=== PATIENT | female | born 1955 | race American Indian/Alaskan Native ===

== ENCOUNTER 2016-03-21 14:46 | Emergency (ER) | payer OTHER ==
[~2016-03-21] VITALS: Ht 160 cm; Wt 81.6 kg
[~2016-03-21 14:46] MED LIST: AGM875T PO; ASP81TEC PO; CALC-656 PO; CALCIUM 500+VI1 EACH PO; CEPH500C PO; CITA10TA12 PO; CLOP75TA PO; HYDR50CA PO; IRB150T PO; LOSA50TA6 PO; METF-380 PO; ONDA-42 PO; OXYC-12 PO; SIMV80TA3 PO
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
--- NOTE | 2016-03-21 15:49 | Diagnostic Imaging Report ---
CLINICAL INDICATION: Patient with facial and left arm numbness. EXAM: Head CT without IV contrast. Axial CT scan of the cervical spine with sagittal and coronal reformations. COMPARISON: Head CT without IV contrast dated 10/10/2014. FINDINGS: Head CT: There is no evidence of acute cerebral infarct, intracranial hemorrhage, or gross mass effect. There is normal perez-white matter distinction. The brain parenchymal volume appears appropriate for patient's age. There is no significant midline shift or herniation. There is no evidence of hydrocephalus. The basal cisterns are unremarkable. The skull, extracranial soft tissue, and orbits are unremarkable. The paranasal sinuses are unremarkable. Cervical spine: There is no evidence of acute cervical spine fracture or dislocation. There is no prevertebral soft tissue swelling. There is no significant central spinal canal or neuroforaminal narrowing. There is mild bilateral facet arthropathy. Visualized lung apices are clear. Neck soft tissue structures show no significant abnormality. IMPRESSION: 1: There is no evidence of acute intracranial process. 2: There is no acute cervical spine fracture or dislocation. Dictated by: Dictated on workstation # [id number]
[2016-03-21 16:54] LABS: BILIRUBIN,URINE NEGATIVE (NEGATIVE); KETONES,URINE NEGATIVE (NEGATIVE); LEUKOCYTE ESTERASE ,URINE 2+ (NEGATIVE); NITRITE,URINE NEGATIVE (NEGATIVE); PH,URINE 6.5 (5-9); PROTEIN,URINE NEGATIVE (NEGATIVE); UROBILINOGEN,URINE NORMAL (NORMAL)
[2016-03-21 17:04] LABS: SQUAMOUS EPITHELIAL CELL,UR 0-2 /HPF
[2016-03-21 17:18] LABS: BASOPHILS # (AUTO) 0.1 10^3/uL (0.0-0.1); BASOPHILS % (AUTO) 1 % (0-10); EOSINOPHILS # (AUTO) 0.2 10^3/uL (0.0-0.3); EOSINOPHILS % (AUTO) 2 % (0-10); LYMPHOCYTES # (AUTO) 2.3 X 10^3 (1.0-4.0); LYMPHOCYTES % (AUTO) 24 % (12-44); MEAN CORPUSCULAR HEMOGLOBIN 29 PG (25-34); MEAN CORPUSCULAR HGB CONC 33 G/DL (32-36); MEAN CORPUSCULAR VOLUME 86 FL (80-99); MEAN PLATELET VOLUME 10.6 FL (7.4-10.4); MONOCYTES # (AUTO) 0.8 X 10^3 (0.0-1.0); MONOCYTES % (AUTO) 8 % (0-12); NEUTROPHILS # (AUTO) 6.1 X 10^3 (1.8-7.8); NEUTROPHILS % (AUTO) 65 % (42-75); PLATELET COUNT 258 10^3/uL (130-400); RED BLOOD COUNT 4.71 10^6/uL (4.35-5.85); RED CELL DISTRIBUTION WIDTH 13.3 % (10.0-14.5); WHITE BLOOD COUNT 9.5 10^3/uL (4.3-11.0)
[2016-03-21 17:28] LABS: PROTHROMBIN TIME PATIENT 12.4 SEC (12.2-14.7)
[2016-03-21 17:34] LABS: ALANINE AMINOTRANSFERASE 26 U/L (0-55); ANION GAP 11 MMOL/L (5-14); ASPARTATE AMINO TRANSFERASE 24 U/L (5-34); BILIRUBIN,TOTAL 0.2 MG/DL (0.1-1.0); BLOOD UREA NITROGEN 10 MG/DL (7-18); BUN/CREATININE RATIO 13; CARBON DIOXIDE 19 MMOL/L (21-32); CHLORIDE 106 MMOL/L (98-107); CREATININE SERUM 0.78 MG/DL (0.60-1.30); GFR ESTIMATED > 60; GLUCOSE 113 MG/DL (70-105); MAGNESIUM 1.9 MG/DL (1.8-2.4); POTASSIUM 4.4 MMOL/L (3.6-5.0); SODIUM 136 MMOL/L (135-145); TOTAL PROTEIN 6.5 G/DL (6.4-8.2)
[2016-03-21 17:56] LABS: THYROID STIMULATING HORMONE 1.58 UIU/ML (0.35-4.94); TROPONIN I < 0.30 NG/ML (<0.30)
[2016-03-21] MEDS ORDERED: CEFD300C3 PO (18:13)
[2016-03-21 18:15] VITALS: BP 158/72
[2016-03-21] MEDS ORDERED: CEPHALEXIN 250 MG (KEFLEX) CAP PO ONE (18:15)
== END 2016-03-21 18:15 | disposition home or self-care (01) ==
LOC: EDUNIT# 14:46 → ER 14:48
DX: R20.0 Anesthesia of skin (principal); R20.2 Paresthesia of skin; N39.0 Urinary tract infection, site not specified; I10 Essential (primary) hypertension; E11.9 Type 2 diabetes mellitus without complications; F17.210 Nicotine dependence, cigarettes, uncomplicated; Z79.84 Long term (current) use of oral hypoglycemic drugs; Z79.899 Other long term (current) drug therapy
CPT/HCPCS: 36415; 70450; 72125; 80053; 81000; 83735; 84443; 84484; 85025; 85610; 85730; 87088; 99284

== ENCOUNTER → 2016-03-24 | Outpatient (CLI) | payer OTHER ==
[~2016-03-24] MED LIST changes: +CEFD300C3 PO
--- OUTSIDE RECORDS SUMMARY | 2016-03-24 07:54 | XMS REPORT | Continuity of Care Document ---
Author Author [facility] Organization [facility] Address Unknown Phone Unavailable Care Team Providers Care Screen Machine Operator Name Role Phone [facility] PCP Insurance Providers Payer Name Policy Number Subscriber Name Relationship [employer] [id number] Janna Chao 18 Self / Same As Patient Advance Directives Directive Response Recorded Date/Time Advance Directives No 03/21/16 2:49pm Health Care Power of Lobby Concierge No 03/21/16 2:49pm Organ Donor No 03/21/16 2:49pm Resuscitation Status Full Code 03/21/16 2:49pm Chief Complaint and Reason for Visit Chief Complaint Neurological Problems Reason for Visit Facial and BUE paraesthesias of UDE [id number] Problems Active Problems Medical Problem Onset Date Status Anxiety Unknown Acute Anxiety hyperventilation Unknown Acute UTI (urinary tract infection) Unknown Acute Medications Current Home Medications Medication Dose Units Route Directions Days/Qty Instructions Start Date Aspirin 81 Mg 81 Mg Oral Daily 03/27/11 Clopidogrel Bisulfate 75 Mg 75 Mg Oral Daily 06/09/12 Metformin Hcl (Glucophage) 1,000 Mg 1,000 Mg Oral Twice A Day Simvastatin 80 Mg 40 Mg Oral Daily 03/27/11 Losartan Potassium 50 Mg 100 Mg Oral Daily 06/09/12 Calcium Carbonate/Vitamin D3 1 Each 1 Tab Oral Twice A Day 06/10/12 Cefdinir (Omnicef) 300 Mg 300 Mg Oral Twice A Day 14 03/21/16 Past Home Medications Medication Directions Ordered Status Calcium Carbonate/Vitamin D3 1 Each Tablet, 1 Tab Oral Daily 03/27/11 Discontinued Irbesartan 150 Mg Tab, 150 Mg Oral Daily 03/27/11 Discontinued Cephalexin Monohydrate (Keflex) 500 Mg Capsule, 1 Each Oral Three Times A Day 03/27/11 Discontinued Amoxicillin/Clavulanate Potassium 1 Tab Tablet, 1 Tab Oral Twice A Day Discontinued Oxycodone Hcl/Acetaminophen 1 Each Tablet, 1 - 2 Each Oral Q4-6H Prn Discontinued Ondansetron Hcl 4 Mg Tab, 4 Mg Oral Every 4HRS as needed 06/12/12 Discontinued Citalopram Hydrobromide 10 Mg Tablet, 10 Mg Oral Daily 10/10/14 Discontinued Hydroxyzine Pamoate 50 Mg Capsule, 50 Mg Oral Every 6 Hours for Anxiety 10/10 Discontinued Social History Social History Problem Response Recorded Date/Time Alcohol Use Denies Use 10/10/2014 6:20pm Recreational Drug Use No 10/10/2014 6:20pm Recent Foreign Travel No 06/09/2012 10:10pm Recent Infectious Disease Exposure No 06/09/2012 10:10pm Hospitalization with Isolation Denies 03/21/2016 2:49pm Sexually Transmitted Disease No 03/21/2016 2:49pm HIV/AIDS No 03/21/2016 2:49pm Smoking Status Current Everyday Smoker 03/21/2016 2:49pm Do you dip or chew tobacco? No 10/10/2014 6:20pm Recent Hopitalizations No 03/21/2016 2:49pm Sexually Transmitted Disease No 03/21/2016 2:49pm Hospitalization with Isolation Denies 03/21/2016 2:49pm Query Response Start Date Stop Date Smoking Status Current Everyday Smoker Hospital Discharge Instructions No hospital discharge instructions. Plan of Care Discharge Date 03/21/16 6:15pm Disposition 01 HOME, SELF-CARE Condition at Discharge Stable Instructions/Education Provided Urinary Tract Infections in Adults Paresthesias (DC) Prescriptions See Medication Section Referrals [facility] - Primary Care Physician Additional Instructions/Education All discharge instructions reviewed with patient and/or family. Voiced understanding. IF SYMPTOMS PERSIST, RECOMMEND FOLLOWING UP @ YOUR PCP's OFFICE TO GET SCHEDULED FOR A MRI OF YOUR BRAIN. Functional Status Query Response Date Recorded Patient Orientation Person Place Time Situation March 21, 2016 2:49pm Comprehension Ability Understands Concepts March 21, 2016 2:49pm Allergies, Adverse Reactions, Alerts No known allergies. Immunizations No immunization records. Vital Signs Acute Vital Signs Vital Response Date/Time Temperature (Fahrenheit) 97.2 degrees F (97.6 - 99.5) 03/21/2016 2:49pm Temperature (Calculated Celsius) 36.85468 degrees C (36.4 - 37.5) 03/21/2016 2:49pm Temperature Source Temporal 03/21/2016 2:49pm Pulse Rate (adult) 80 bpm (60 - 90) 03/21/2016 2:49pm Respiratory Rate 20 bpm (12 - 24) 03/21/2016 2:49pm O2 Sat by Pulse Oximetry 97 % (88 - 100) 03/21/2016 2:49pm Blood Pressure 162/76 mm Hg 03/21/2016 2:49pm Blood Pressure Mean 104 mm Hg 03/21/2016 2:49pm Pain Numeric Pain Scale 0-No Pain 03/21/2016 2:49pm Height (Feet) 5 feet 03/21/2016 2:49pm Height (Inches) 3 inches 03/21/2016 2:49pm Height (Calculated Centimeters) 160.826061 cm 03/21/2016 2:49pm Weight (Pounds) 180 pounds 03/21/2016 2:49pm Weight (Calculated Kilograms) 81.472725 kilograms 03/21/2016 2:49pm Capillary Refill Capillary Refill Less Than 3 Seconds 03/21/2016 2:49pm Height 5 ft 3 in Weight 180 lb Body Mass Index 31.9 kg/m^2 Results Laboratory Results Test Name Result Units Flags Reference Collection Date/Time Result Date/ Time Comments White Blood Count 9.5 10^3/uL 4.3-11.0 03/21/2016 5:04pm 03/21/2016 5: 21pm Red Blood Count 4.71 10^6/uL 4.35-5.85 03/21/2016 5:04pm 03/21/2016 5: 21pm Hemoglobin 13.5 G/DL 11.5-16.0 03/21/2016 5:04pm 03/21/2016 5:21pm Hematocrit 41 % 35-52 03/21/2016 5:04pm 03/21/2016 5:21pm Mean Corpuscular Volume 86 FL 80-99 03/21/2016 5:04pm 03/21/2016 5: 21pm Mean Corpuscular Hemoglobin 29 PG 25-34 03/21/2016 5:04pm 03/21/2016 5: 21pm Mean Corpuscular Hemoglobin Concent 33 G/DL 32-36 03/21/2016 5:04pm 5:21pm Red Cell Distribution Width 13.3 % 10.0-14.5 03/21/2016 5:04pm 2016 5:21pm Platelet Count 258 10^3/uL 130-400 03/21/2016 5:04pm 03/21/2016 5:21pm Mean Platelet Volume 10.6 FL H 7.4-10.4 03/21/2016 5:04pm 03/21/2016 5: 21pm Neutrophils (%) (Auto) 65 % 42-75 03/21/2016 5:04pm 03/21/2016 5:21pm Lymphocytes (%) (Auto) 24 % 12-44 03/21/2016 5:04pm 03/21/2016 5:21pm Monocytes (%) (Auto) 8 % 0-12 03/21/2016 5:04pm 03/21/2016 5:21pm Eosinophils (%) (Auto) 2 % 0-10 03/21/2016 5:04pm 03/21/2016 5:21pm Basophils (%) (Auto) 1 % 0-10 03/21/2016 5:04pm 03/21/2016 5:21pm Neutrophils # (Auto) 6.1 X 10^3 1.8-7.8 03/21/2016 5:04pm 03/21/2016 5: 21pm Lymphocytes # (Auto) 2.3 X 10^3 1.0-4.0 03/21/2016 5:04pm 03/21/2016 5: 21pm Monocytes # (Auto) 0.8 X 10^3 0.0-1.0 03/21/2016 5:04pm 03/21/2016 5: 21pm Eosinophils # (Auto) 0.2 10^3/uL 0.0-0.3 03/21/2016 5:04pm 03/21/2016 5 :21pm Basophils # (Auto) 0.1 10^3/uL 0.0-0.1 03/21/2016 5:04pm 03/21/2016 5: 21pm Prothrombin Time 12.4 SEC 12.2-14.7 03/21/2016 5:04pm 03/21/2016 5: 34pm INR Comment 1.0 0.8-1.4 03/21/2016 5:04pm 03/21/2016 5:34pm INTERPRETIVE DATA SUGGESTED THERAPEUTIC RANGE FOR INR'S: VENOUS THROMBOSIS, PULMONARY EMBOLISM, OR PREVENTION OF SYSTEMIC EMBOLISM (EG. IN ATRIAL FIBRILLATION): 2.0 - 3.0 MECHANICAL PROSTHETIC HEART VALVES: 2.5 - 3.5* *NOTE: INR'S UP TO 4.5 MAY BE NECESSARY IN SELECTED GROUPS OF HIGH RISK PATIENTS. [employer] CONSENSUS CONFERENCE ON ANTITHROMBOTIC THERAPY (2000). Activated Partial Thromboplast Time 27 SEC 24-35 03/21/2016 5:04pm 5:34pm Urine Color YELLOW 03/21/2016 4:05pm 03/21/2016 5:04pm Urine Clarity CLEAR 03/21/2016 4:05pm 03/21/2016 5:04pm Urine pH 6.5 5-9 03/21/2016 4:05pm 03/21/2016 5:04pm Urine Specific [place] 1.010 * 1.016-1.022 03/21/2016 4:05pm 2016 5:04pm Urine Protein NEGATIVE NEGATIVE 03/21/2016 4:05pm 03/21/2016 5:04pm Urine Glucose (UA) NEGATIVE NEGATIVE 03/21/2016 4:05pm 03/21/2016 5: 04pm Urine RBC (Auto) NEGATIVE NEGATIVE 03/21/2016 4:05pm 03/21/2016 5: 04pm Urine Ketones NEGATIVE NEGATIVE 03/21/2016 4:05pm 03/21/2016 5:04pm Urine Nitrite NEGATIVE NEGATIVE 03/21/2016 4:05pm 03/21/2016 5:04pm Urine Bilirubin NEGATIVE NEGATIVE 03/21/2016 4:05pm 03/21/2016 5: 04pm Urine Urobilinogen NORMAL MG/DL NORMAL 03/21/2016 4:05pm 03/21/2016 5: 04pm Urine Leukocyte Esterase 2+ * NEGATIVE 03/21/2016 4:05pm 03/21/2016 5: 04pm Urine RBC NONE /HPF 03/21/2016 4:05pm 03/21/2016 5:04pm Urine WBC 5-10 /HPF * 03/21/2016 4:05pm 03/21/2016 5:04pm Urine Bacteria FEW /HPF * 03/21/2016 4:05pm 03/21/2016 5:04pm Urine Squamous Epithelial Cells 0-2 /HPF 03/21/2016 4:05pm 2016 5:04pm Urine Crystals NONE /LPF 03/21/2016 4:05pm 03/21/2016 5:04pm Urine Casts NONE /LPF 03/21/2016 4:05pm 03/21/2016 5:04pm Urine Mucus NEGATIVE /LPF 03/21/2016 4:05pm 03/21/2016 5:04pm Urine Culture Indicated YES 03/21/2016 4:05pm 03/21/2016 5:04pm Sodium Level 136 MMOL/L 135-145 03/21/2016 5:04pm 03/21/2016 5:42pm Potassium Level 4.4 MMOL/L 3.6-5.0 03/21/2016 5:04pm 03/21/2016 5:42pm Chloride Level 106 MMOL/L 98-107 03/21/2016 5:04pm 03/21/2016 5:42pm Carbon Dioxide Level 19 MMOL/L L 21-32 03/21/2016 5:04pm 03/21/2016 5: 42pm Anion Gap 11 MMOL/L 5-14 03/21/2016 5:04pm 03/21/2016 5:42pm Blood Urea Nitrogen 10 MG/DL 7-18 03/21/2016 5:04pm 03/21/2016 5:42pm Creatinine 0.78 MG/DL 0.60-1.30 03/21/2016 5:04pm 03/21/2016 5:42pm BUN/Creatinine Ratio 13 03/21/2016 5:04pm 03/21/2016 5:42pm Estimat Glomerular Filtration Rate > 60 03/21/2016 5:04pm 2016 5:42pm GFR INTERPRETIVE DATA UNITS FOR ESTIMATED GFR (eGFR): mL/min/1.73 M2 REFERENCE RANGE FOR ESTIMATED GFR (eGFR) eGFR NORMAL eGFR >60 MODERATELY DECREASED eGFR 30-59 SEVERLY DECREASED eGFR 15-29 KIDNEY FAILURE <15 (OR DIALYSIS) Glucose Level 113 MG/DL H 70-105 03/21/2016 5:04pm 03/21/2016 5:42pm Calcium Level 9.0 MG/DL 8.5-10.1 03/21/2016 5:04pm 03/21/2016 5:42pm Magnesium Level 1.9 MG/DL 1.8-2.4 03/21/2016 5:04pm 03/21/2016 5:42pm Total Bilirubin 0.2 MG/DL 0.1-1.0 03/21/2016 5:04pm 03/21/2016 5:42pm Alkaline Phosphatase 118 U/L 40-136 03/21/2016 5:04pm 03/21/2016 5: 42pm Aspartate Amino Transf (AST/SGOT) 24 U/L 5-34 03/21/2016 5:04pm 2016 5:42pm Alanine Aminotransferase (ALT/SGPT) 26 U/L 0-55 03/21/2016 5:04pm 03/21 5:42pm Troponin I < 0.30 NG/ML <0.30 03/21/2016 5:04pm 03/21/2016 5:57pm Total Protein 6.5 G/DL 6.4-8.2 03/21/2016 5:04pm 03/21/2016 5:42pm Albumin 4.0 G/DL 3.2-4.5 03/21/2016 5:04pm 03/21/2016 5:42pm Thyroid Stimulating Hormone (TSH) 1.58 UIU/ML 0.35-4.94 03/21/2016 5: 04pm 03/21/2016 5:57pm Procedures Procedure Status Date Provider(s) Tracing only of electrocardiogram Active 03/21/16 AUSTIN LOUIS DO Encounters Encounter Location Arrival/Admit Date Discharge/Depart Date Attending Provider Departed Emergency Room [facility] 03/21/16 2:48pm 03/21 6:15pm AUSTIN LOUIS DO Recent Diagnosis
--- NOTE | 2016-03-24 08:58 | Diagnostic Imaging Report ---
CLINICAL INDICATION: Patient states she has had history of mini strokes in the past. Patient has been having tingling and numbness in her lips and chin area and both hands since [place]. No previous brain surgery. EXAM: MRI of the brain performed without IV contrast. Sequences include axial DWI, ADC map, axial T2, axial FLAIR, axial gradient echo, axial T1, axial, and sagittal T1. COMPARISON: Head CT without IV contrast dated 03/21/2016. FINDINGS: There is no evidence of acute cerebral infarct, intracranial hemorrhage, or gross mass effect. There are focal and patchy areas of high T2 signal white matter changes in both cerebral hemispheres. There is a small area of chronic cerebral infarct involving the posterior left frontal lobe/parietal lobe region with mild encephalomalacia. This is also seen on comparison head CT, but more conspicuous on this exam. Otherwise, there is normal perez-white matter distinction. The brain parenchymal volume appears appropriate for patient's age. There is no significant midline shift or herniation. The visualized [place] of [place] vascular structures have normal flow void appearance. There is no evidence of hydrocephalus. The basal cisterns are unremarkable. The skull, extracranial soft tissue, and orbits are unremarkable. There is minimal mucosal thickening involving both maxillary sinuses. IMPRESSION: 1: There is no evidence of acute cerebral infarction, intracranial hemorrhage, hydrocephalus, or brain herniation. 2: Small chronic cerebral infarct involving the posterior left cerebral hemisphere and mild chronic small vessel ischemic disease. 3: Mild paranasal sinus disease. Dictated by: Dictated on workstation # [id number]
== END ==
LOC: RAD 07:50
PROVIDERS: ATTEND Nurse Practitioner Family
DX: R20.2 Paresthesia of skin (principal); Z86.73 Personal history of transient ischemic attack (TIA), and cerebral infarction without residual deficits
CPT/HCPCS: 70551

== ENCOUNTER → 2016-04-07 | Outpatient (CLI) | payer OTHER ==
--- OUTSIDE RECORDS SUMMARY | 2016-04-07 16:33 | XMS REPORT | Continuity of Care Document ---
Author Author [facility] Organization [facility] Address Unknown Phone Unavailable Care Team Providers Care Fixed Capital Clerk Name Role Phone [facility] PCP Insurance Providers Payer Name Policy Number Subscriber Name Relationship [employer] [id number] Janna Chao 18 Self / Same As Patient Advance Directives Directive Response Recorded Date/Time Advance Directives No 03/21/16 2:49pm Health Care Power of Table And Desk Finisher No 03/21/16 2:49pm Organ Donor No 03/21/16 2:49pm Resuscitation Status Full Code 03/21/16 2:49pm Chief Complaint and Reason for Visit Chief Complaint Neurological Problems Reason for Visit Facial and BUE paraesthesias of UDE [id number] Problems Active Problems Medical Problem Onset Date [...] Paresthesias (DC) Prescriptions See Medication Section Referrals [facility] - Primary Care Physician Additional Instructions/Education All [...] - 99.5) 03/21/2016 2:49pm Temperature (Calculated Celsius) 36.36392 degrees C (36.4 - 37.5) 03/21/2016 2:49pm [...] 3 inches 03/21/2016 2:49pm Height (Calculated Centimeters) 160.071883 cm 03/21/2016 2:49pm Weight (Pounds) 180 pounds 03/21/2016 2:49pm Weight (Calculated Kilograms) 81.509016 kilograms 03/21/2016 2:49pm Capillary Refill Capillary Refill [...] SELECTED GROUPS OF HIGH RISK PATIENTS. [employer] [place] [employer] CONSENSUS CONFERENCE ON ANTITHROMBOTIC THERAPY (2000). Activated Partial Thromboplast Time 27 SEC 24-35 03/21/2016 5:04pm 5:34pm Urine Color YELLOW 03/21/2016 4:05pm 03/21/2016 5:04pm Urine Clarity CLEAR 03/21/2016 4:05pm 03/21/2016 5:04pm Urine pH 6.5 5-9 03/21/2016 4:05pm 03/21/2016 5:04pm Urine Specific [place] 1.010 * 1.016-1.022 03/21/2016 4:05pm 2016 5:04pm [...] Date Attending Provider Departed Emergency Room [facility] 03/21/16 2:48pm 03/21 6:15pm AUSTIN LOUIS DO Recent Diagnosis
--- NOTE | 2016-04-07 16:52 | Diagnostic Imaging Report ---
Three views of the right ribs. INDICATION: Fall. FINDINGS: There is no rib fracture. The right lung is clear. Surgical clips in the upper right abdomen seen. IMPRESSION: No right rib fracture seen. Dictated by: Dictated on workstation # [id number]
== END ==
LOC: RAD 16:29
PROVIDERS: ATTEND Nurse Practitioner Family
DX: S20.301A Unspecified superficial injuries of right front wall of thorax, initial encounter (principal); W19.XXXA Unspecified fall, initial encounter; Y92.69 Other specified industrial and construction area as the place of occurrence of the external cause; Y99.0 Civilian activity done for income or pay
CPT/HCPCS: 71100

== ENCOUNTER 2017-11-13 13:58 | Emergency (ER) | payer OTHER ==
[~2017-11-13] VITALS: Ht 157.5 cm; Wt 77.6 kg
[2017-11-13 14:00] VITALS: BP 149/96
[2017-11-13 14:31] LABS: BASOPHILS # (AUTO) 0.1 10^3/uL (0.0-0.1); BASOPHILS % (AUTO) 1 % (0-10); EOSINOPHILS # (AUTO) 0.4 10^3/uL (0.0-0.3); EOSINOPHILS % (AUTO) 4 % (0-10); HEMATOCRIT 39 % (35-52); HEMOGLOBIN 13.1 G/DL (11.5-16.0); LYMPHOCYTES # (AUTO) 3.9 X 10^3 (1.0-4.0); LYMPHOCYTES % (AUTO) 35 % (12-44); MEAN CORPUSCULAR HEMOGLOBIN 30 PG (25-34); MEAN CORPUSCULAR HGB CONC 34 G/DL (32-36); MEAN CORPUSCULAR VOLUME 88 FL (80-99); MEAN PLATELET VOLUME 9.9 FL (7.4-10.4); MONOCYTES # (AUTO) 0.7 X 10^3 (0.0-1.0); MONOCYTES % (AUTO) 6 % (0-12); NEUTROPHILS # (AUTO) 6.1 X 10^3 (1.8-7.8); NEUTROPHILS % (AUTO) 54 % (42-75); PLATELET COUNT 312 10^3/uL (130-400); RED BLOOD COUNT 4.43 10^6/uL (4.35-5.85); RED CELL DISTRIBUTION WIDTH 14.2 % (10.0-14.5); WHITE BLOOD COUNT 11.2 10^3/uL (4.3-11.0)
[2017-11-13 14:45] LABS: INR 0.9 (0.8-1.4); PROTHROMBIN TIME PATIENT 12.2 SEC (12.2-14.7)
[2017-11-13 14:46] LABS: FIBRIN DEGRADATION PRODUCTS 0.23 UG/ML (0.00-0.49)
[2017-11-13 14:48] LABS: ALANINE AMINOTRANSFERASE 36 U/L (0-55); ALBUMIN 4.1 GM/DL (3.2-4.5); ALKALINE PHOSPHATASE 126 U/L (40-136); BILIRUBIN,TOTAL 0.3 MG/DL (0.1-1.0); BUN/CREATININE RATIO 14; CALCIUM 9.4 MG/DL (8.5-10.1); CARBON DIOXIDE 22 MMOL/L (21-32); CHLORIDE 103 MMOL/L (98-107); CREATININE SERUM 0.77 MG/DL (0.60-1.30); GFR ESTIMATED > 60; GLUCOSE 112 MG/DL (70-105); POTASSIUM 4.1 MMOL/L (3.6-5.0); SODIUM 136 MMOL/L (135-145)
--- NOTE | 2017-11-13 14:50 | ED Neurological Problem ---
General Chief Complaint: Neurological Problems Nursing Triage Note: PT AMB [facility] W/O DIFFICU/LTY. CO WEAKNESS AND NUMBNESS/TINGLING TO RT UPPER EXTREMITIY AND TINGER TIPS SINCE 11/05/17. REPORTS WAS SEEN AT PCP 11/07/17 WHERE EKG, LABS, AND XRAY WERE TAKEN AND CLEARED. PT REPORTS HX OF TIA 15 YEARS AGO, AND "WAS WORRIED [SHE] IS HAVING ANOTHER ONE." UPON ARRIVAL TO ED NIH STROKE SCALE PREFORMED WITH SCORE OF 0. PT ALERT & ORIENTED TO PERSON, PLACE, TIME AND SITUATION. SPEECH CLEAR. DENIES PAIN. Nursing Sepsis Screen: No Definite Risk Source: patient Exam Limitations: no limitations History of Present Illness Date Seen by Provider: Nov 13, 2017 Time Seen by Provider: 14:09 Initial Comments Here with report of weakness and numbness to the right arm that has been intermittent for the last week. States noted with activity. She was seen at [facility] earlier this week and had labs and x-rays. She is not sure about those findings although has not been called for anything that was abnormal. States that she has had some increasing numbness today and that scared her, prompting her visit to the emergency department. Patient is walking without difficulty. Timing/Duration: 1 week, waxing and waning Associated Symptoms: No confusion, No fever/chills, No muscle spasms, No nausea /vomiting, No numbness in legs/feet; paresthesia (right hand and circumoral); No slurred speech, No tingling in legs/feet, No trouble walking, No vision changes; weakness Allergies and Home Medications Allergies Coded Allergies: No Known Drug Allergies (Unverified , 03/27/11) Home Medications Aspirin 81 Mg Tabec, 81 MG PO DAILY, (Reported) Calcium Carbonate/Vitamin D3 1 Each Tablet, 1 TAB PO BID, (Reported) Cefdinir 300 Mg Capsule, 300 MG PO BID Prescribed by: AUSTIN LOUIS on 03/21/161812 Clopidogrel Bisulfate 75 Mg Tablet, 75 MG PO DAILY, (Reported) Losartan Potassium 50 Mg Tablet, 100 MG PO DAILY, (Reported) Metformin Hcl 1,000 Mg Tablet, 1,000 MG PO BID, (Reported) Simvastatin 80 Mg Tablet, 40 MG PO DAILY, (Reported) Patient Home Medication List Home Medication List Reviewed: Yes Review of Systems Review of Systems Constitutional: see HPI; No chills, No fever Eyes: No Symptoms Reported Ears, Nose, Mouth, Throat: see HPI; denies mouth swelling, denies throat pain Respiratory: No cough, No short of breath Cardiovascular: No chest pain, No edema Gastrointestinal: No abdominal pain, No nausea, No vomiting Psychiatric/Neurological: See HPI; Denies Headache; Numbness, Weakness All Other Systems Reviewed Negative Unless Noted: Yes Past Jmletfh-Yuuqes-Ziqpti Hx Past Med/Social Hx: Reviewed Nursing Past Med/Soc Hx Patient Social History Alcohol Use: Denies Use Recreational Drug Use: No Smoking Status: Current Everyday Smoker Type Used: Cigarettes 2nd Hand Smoke Exposure: Yes Recent Foreign Travel: No Contact w/Someone Who Travel: No Recent Infectious Disease Expo: No Recent Hopitalizations: No Physical Abuse: No Sexual Abuse: No Mistreated: No Immunizations Up To Date Date of Pneumonia Vaccine: Mar 24, 2011 Date of Influenza Vaccine: Mar 24, 2011 Seasonal Allergies Seasonal Allergies: No Past Medical History Surgeries: Yes (LEFT KNEE SRTHROSCOPY) Adenoidectomy, Section, Gallbladder, Hysterectomy, Orthopedic, Tonsillectomy Respiratory: No Cardiac: Yes High Cholesterol, Hypertension Neurological: Yes TIA Reproductive Disorders: No 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 [employer] History: Menopausal Sexually Transmitted Disease: No HIV/AIDS: No Genitourinary: No Gastrointestinal: Yes (S/P LAP HAY) Gastroesophageal Reflux, Gall Bladder Disease Musculoskeletal: No Endocrine: Yes Diabetes, Non-Insulin dep HEENT: No Cancer: No Psychosocial: Yes Anxiety Integumentary: No Blood Disorders: No Adverse Reaction/Blood Tranf: No Family Medical History Reviewed Nursing Family Hx No Pertinent Family Hx Physical Exam Vital Signs Vital Signs - First Documented 11/13/17 14:00 Temp 98.9 Pulse 85 Resp 19 B/P (MAP) 149/96 Pulse Ox 99 O2 Delivery Room Air Capillary Refill : Less Than 3 Seconds Height, Weight, BMI Height: 5'2.00" Weight: 171lbs. 8.0oz. 77.258948lt; BMI Method:Stated General Appearance: WD/WN, no apparent distress HEENT: PERRL/EOMI, pharynx normal Neck: full range of motion, supple Respiratory: lungs clear, normal breath sounds Cardiovascular: regular rate, rhythm, no murmur Peripheral Pulses: 2+ Dorsalis Pedis (R), 2+ Left Dors-Pedis (L), 2+ Radial Pulses (R), 2+ Radial Pulses (L) Gastrointestinal: non tender, soft Back: normal inspection, no CVA tenderness, no vertebral tenderness Extremities: non-tender, normal inspection Neurologic/Psychiatric: alert, oriented x 3 Crainal Nerves: normal hearing, normal speech, PERRL Coordination/Gait: normal finger to nose, normal gait Motor/Sensory: no motor deficit, no sensory deficit, no pronator drift Skin: normal color, warm/dry Progress/Results/Core Measures Results/Orders Lab Results Laboratory Tests Test 11/13/17 14:05 11/13/17 14:11 11/13/17 14:50 Range/Units White Blood Count 11.2 H 4.3-11.0 10^3/uL Red Blood Count 4.43 4.35-5.85 10^6/uL Hemoglobin 13.1 11.5-16.0 G/DL Hematocrit 39 35-52 % Mean Corpuscular Volume 88 80-99 FL Mean Corpuscular Hemoglobin 30 25-34 PG Mean Corpuscular Hemoglobin Concent 34 32-36 G/DL Red Cell Distribution Width 14.2 10.0-14.5 % Platelet Count 312 130-400 10^3/uL Mean Platelet Volume 9.9 7.4-10.4 FL Neutrophils (%) (Auto) 54 42-75 % Lymphocytes (%) (Auto) 35 12-44 % Monocytes (%) (Auto) 6 0-12 % Eosinophils (%) (Auto) 4 0-10 % Basophils (%) (Auto) 1 0-10 % Neutrophils # (Auto) 6.1 1.8-7.8 X 10^3 Lymphocytes # (Auto) 3.9 1.0-4.0 X 10^3 Monocytes # (Auto) 0.7 0.0-1.0 X 10^3 Eosinophils # (Auto) 0.4 H 0.0-0.3 10^3/uL Basophils # (Auto) 0.1 0.0-0.1 10^3/uL Prothrombin Time 12.2 12.2-14.7 SEC INR Comment 0.9 0.8-1.4 Activated Partial Thromboplast Time 29 24-35 SEC D-Dimer 0.23 0.00-0.49 UG/ML Sodium Level 136 135-145 MMOL/L Potassium Level 4.1 3.6-5.0 MMOL/L Chloride Level 103 98-107 MMOL/L Carbon Dioxide Level 22 21-32 MMOL/L Anion Gap 11 5-14 MMOL/L Blood Urea Nitrogen 11 7-18 MG/DL Creatinine 0.77 0.60-1.30 MG/DL Estimat Glomerular Filtration Rate > 60 BUN/Creatinine Ratio 14 Glucose Level 112 H 70-105 MG/DL Calcium Level 9.4 8.5-10.1 MG/DL Corrected Calcium 9.3 8.5-10.1 MG/DL Total Bilirubin 0.3 0.1-1.0 MG/DL Aspartate Amino Transf (AST/SGOT) 29 5-34 U/L Alanine Aminotransferase (ALT/SGPT) 36 0-55 U/L Alkaline Phosphatase 126 40-136 U/L Troponin I < 0.30 <0.30 NG/ML Total Protein 7.0 6.4-8.2 GM/DL Albumin 4.1 3.2-4.5 GM/DL Glucometer 110 70-110 MG/DL Urine Color YELLOW Urine Clarity CLEAR Urine pH 7 5-9 Urine Specific Landenberg 1.005 L 1.016-1.022 Urine Protein NEGATIVE NEGATIVE Urine Glucose (UA) NEGATIVE NEGATIVE Urine Ketones NEGATIVE NEGATIVE Urine Nitrite NEGATIVE NEGATIVE Urine Bilirubin NEGATIVE NEGATIVE Urine Urobilinogen NORMAL NORMAL MG/DL Urine Leukocyte Esterase 2+ H NEGATIVE Urine RBC (Auto) NEGATIVE NEGATIVE Urine RBC RARE /HPF Urine WBC 5-10 H /HPF Urine Squamous Epithelial Cells 5-10 /HPF Urine Crystals NONE /LPF Urine Bacteria FEW H /HPF Urine Casts NONE /LPF Urine Mucus NEGATIVE /LPF Urine Culture Indicated YES My Orders Orders - YRN LANGLEY MD Cbc With Automated Diff (11/13/17 14:10) Protime With Inr (11/13/17 14:10) Partial Thromboplastin Time (11/13/17 14:10) Comprehensive Metabolic Panel (11/13/17 14:10) Fibrin Degradation Products (11/13/17 14:10) Troponin I (11/13/17 14:10) Ua Culture If Indicated (11/13/17 14:10) Chest 1 View, Ap/Pa Only (11/13/17 14:10) Ekg Tracing (11/13/17 14:10) Nothing By Mouth (11/13/17 Dinner) Accucheck Stat ONCE (11/13/17 14:10) Saline Lock/Iv-Start (11/13/17 14:10) Vital Signs Stroke Patient Q15M (11/13/17 14:10) O2 (11/13/17 14:10) Intake & Output 06,14,22 (11/13/17 14:10) Monitor-Rhythm Ecg Trace Only (11/13/17 14:10) Dysphagia Screening Tool (11/13/17 14:10) Lipid Panel (11/14/17 06:00) Ct Head/Cervical Spine Wo (11/13/17 14:10) Urine Culture (11/13/17 14:50) Vital Signs/I&O 11/13/17 11/13/17 14:00 14:00 Temp 98.9 Pulse 85 85 Resp 19 19 B/P (MAP) 149/96 149/96 (113) Pulse Ox 99 99 O2 Delivery Room Air Blood Pressure Mean: 113 FSBG Bedside Testing Finger Stick Blood Glucose: 111 Blood Glucose Action Taken: provider notified Progress Progress Note : Progress Note Seen and evaluated. IV, labs, EKG, chest x-ray, CT head ordered. We will add CT neck due to possible radiculopathy findings. Patient is 0 on stroke scale was done by me. Balance and gait are without disturbance. 1624: CT results noted. Lab and x-ray reviewed. I did discuss this with the patient. Overall she is feeling better and there are no acute findings. We will treat for probable urinary tract infection and patient admits that she's had some urinary tract symptoms over the last few weeks. She did get treatment with Bactrim for a few days and felt a little better. We will initiate treatment with outpatient cephalexin. Patient will follow-up with her DrGarima for further evaluation of her neck including MRI if indicated due to what appears to be radiculopathy findings in the right arm. Discharged home with return precautions. Patient verbalize understanding instructions and agreement with plan. Initial ECG Impression Date: Nov 13, 2017 Initial ECG Impression Time: 14:19 Initial ECG Rate: 76 Initial ECG Rhythm: Normal Sinus Initial ECG Intervals: Normal Initial ECG Impression: Normal Initial ECG Comparisson: Unchanged Comment Sinus rhythm with normal axis. No evidence of ST elevation SC. Similar to 10 October 2014. Interpreted by me. Diagnostic Imaging Diagonstic Imaging: Xray Plain Films/CT/US/NM/MRI: chest Comments VIA [facility] [place], [place] NAME: ALEX CHAO [facility] REC#: [id number] PT STATUS: REG ER : 1955 PHYSICIAN: YRN LANGLEY MD ADMIT DATE: 11/13/17/ER Draft Date of Exam:11/13/17 CHEST 1 VIEW, AP/PA ONLY Indication: Upper extremity paresthesia and facial numbness. Single AP view of the chest is obtained. Comparison is made to study of 10/10/2014. Overall heart size and pulmonary vascularity are within normal limits. There is mild linear atelectasis or scarring in the left base. No consolidation or pneumothorax identified. There is no evidence of significant pleural fluid. Impression: Left basilar atelectasis and/or scarring. Otherwise, no acute abnormality or adverse change is seen. Report faxed to [facility] in [place] at 4:10 p.m. 11/13/2017/yevgeniy Dictated on workstation # [id number] Dict: 11/13/17 1441 Trans: 11/13/17 [address] [id number] Interpreted by: KRISTAL SCOTT MD Electronically signed by: Diagonstic Imaging: CT Plain Films/CT/US/NM/MRI: c-spine, head Comments PT STATUS: REG ER : 1955 PHYSICIAN: YRN LANGLEY MD ADMIT DATE: 11/13/17/ER Draft Date of Exam:11/13/17 CT HEAD/CERVICAL SPINE WO PROCEDURE: CT head and CT cervical spine without contrast. TECHNIQUE: Multiple contiguous axial images were obtained through the brain and cervical spine without the use of intravenous contrast. Sagittal and coronal reformations through the cervical spine were then performed. INDICATION: Right facial and upper extremity paresthesia with neck pain. Comparison is made to study of 03/21/2016. Ventricles and sulci remain within normal limits. There is no evidence of hemorrhage. Low-density seen within the high left frontal and parietal white matter. This is not significantly changed compared to previous study. There is no evidence of acute infarct. Calvarium is intact and the visualized paranasal sinuses are clear. IMPRESSION: Low-density within the high left frontal and parietal white matter which may be related to scoliosis and possible old ischemic event. There is no CT evidence of acute intracranial abnormality. CT CERVICAL SPINE: Multiple contiguous axial CT images of the cervical spine were obtained with sagittal and coronal reformatted images produced. FINDINGS: There is loss of normal cervical lordosis. Vertebral body heights and disc spaces are maintained. Prevertebral soft tissues are unremarkable, and there is no evidence of paraspinous hematoma. There is diffuse degenerative facet arthropathy similar to the previous examination. IMPRESSION: Loss of normal cervical lordosis which may be due to positioning or muscle spasm. There is, otherwise, no CT evidence of acute cervical spinal abnormality. Report faxed to [facility] in [place] at 4:08 p.m. 11/13/2017/yevgeniy Dictated on workstation # [id number] Dict: 11/13/17 1442 Trans: 11/13/17 [address] [id number] Interpreted by: KRISTAL SCOTT MD Electronically signed by: Departure Impression Primary Impression: Cervical radiculopathy Additional Impressions: Urinary tract infection Qualified Codes: N30.00 - Acute cystitis without hematuria Paresthesia Disposition: HOME, SELF-CARE Condition: Improved Departure-Patient Inst. Decision time for Depature: 16:30 Referrals: BHASKAR LEWIS DO (PCP) Primary Care Physician JAMES CHANDLER APRN (Family) Primary Care Physician Patient Instructions: Paresthesias (DC), Radiculopathy (DC), Urinary Tract Infection, Adult (DC) Add. Discharge Instructions: All discharge instructions reviewed with patient and/or family. Voiced understanding. Continue home medications as previously prescribed. Take new medicines as prescribed. Follow-up with your doctor this week for recheck and further evaluation and to discuss evaluation for your neck including MRI if indicated. Return for worsening, fever, vomiting, weakness, breathing problems, vision or balance problems or other concerns as needed. Scripts Cephalexin (Cephalexin) 500 Mg Tablet 500 MG PO BID, #14 TAB 0 Refills Prov: YRN LANGLEY MD 11/13/17 Copy Copies To 1: BHASKAR LEWIS TIMOTHY D MD Nov 13, 2017 14:50
[2017-11-13 15:08] LABS: BILIRUBIN,URINE NEGATIVE (NEGATIVE); CLARITY,URINE CLEAR; COLOR,URINE YELLOW; GLUCOSE, URINE (UA) NEGATIVE (NEGATIVE); KETONES,URINE NEGATIVE (NEGATIVE); LEUKOCYTE ESTERASE ,URINE 2+ (NEGATIVE); NITRITE,URINE NEGATIVE (NEGATIVE); PH,URINE 7 (5-9); PROTEIN,URINE NEGATIVE (NEGATIVE); UROBILINOGEN,URINE NORMAL (NORMAL)
[2017-11-13 15:16] LABS: BACTERIA,URINE FEW /HPF; RBC,URINE RARE /HPF
--- NOTE | 2017-11-13 16:05 | Diagnostic Imaging Report ---
Indication: Upper extremity paresthesia and facial numbness. Single AP view of the chest is obtained. Comparison is made to study of 10/10/2014. Overall heart size and pulmonary vascularity are within normal limits. There is mild linear atelectasis or scarring in the left base. No consolidation or pneumothorax identified. There is no evidence of significant pleural fluid. Impression: Left basilar atelectasis and/or scarring. Otherwise, no acute abnormality or adverse change is seen. Report faxed to [facility] in [place] at 4:10 p.m. 11/13/2017/yevgeniy Dictated by: Dictated on workstation # [id number]
--- NOTE | 2017-11-13 16:05 | Diagnostic Imaging Report ---
PROCEDURE: CT head and CT cervical spine without contrast. TECHNIQUE: Multiple contiguous axial images were obtained through the brain and cervical spine without the use of intravenous contrast. Sagittal and coronal reformations through the cervical spine were then performed. INDICATION: Right facial and upper extremity paresthesia with neck pain. Comparison is made to study of 03/21/2016. Ventricles and sulci remain within normal limits. There is no evidence of hemorrhage. Low-density seen within the high left frontal and parietal white matter. This is not significantly changed compared to previous study. There is no evidence of acute infarct. Calvarium is intact and the visualized paranasal sinuses are clear. IMPRESSION: Low-density within the high left frontal and parietal white matter which may be related to scoliosis and possible old ischemic event. There is no CT evidence of acute intracranial abnormality. CT CERVICAL SPINE: Multiple contiguous axial CT images of the cervical spine were obtained with sagittal and coronal reformatted images produced. FINDINGS: There is loss of normal cervical lordosis. Vertebral body heights and disc spaces are maintained. Prevertebral soft tissues are unremarkable, and there is no evidence of paraspinous hematoma. There is diffuse degenerative facet arthropathy similar to the previous examination. IMPRESSION: Loss of normal cervical lordosis which may be due to positioning or muscle spasm. There is, otherwise, no CT evidence of acute cervical spinal abnormality. Report faxed to [facility] in [place] at 4:08 p.m. 11/13/2017/yevgeniy Dictated by: Dictated on workstation # [id number]
[2017-11-13] MEDS ORDERED: CEPH500T PO (16:32)
[2017-11-13 16:40] VITALS: BP 150/88
== END 2017-11-13 16:40 | disposition home or self-care (01) ==
LOC: EDUNIT# 13:58 → ER 13:59
DX: M54.12 Radiculopathy, cervical region (principal); N39.0 Urinary tract infection, site not specified; R20.2 Paresthesia of skin; E78.00 Pure hypercholesterolemia, unspecified; I10 Essential (primary) hypertension; E11.9 Type 2 diabetes mellitus without complications; F41.9 Anxiety disorder, unspecified; K21.9 Gastro-esophageal reflux disease without esophagitis; F17.210 Nicotine dependence, cigarettes, uncomplicated; Z90.49 Acquired absence of other specified parts of digestive tract; Z79.82 Long term (current) use of aspirin; Z79.02 Long term (current) use of antithrombotics/antiplatelets; Z87.448 Personal history of other diseases of urinary system; Z90.89 Acquired absence of other organs; Z79.84 Long term (current) use of oral hypoglycemic drugs; Z90.710 Acquired absence of both cervix and uterus; Z86.73 Personal history of transient ischemic attack (TIA), and cerebral infarction without residual deficits
CPT/HCPCS: 36415; 70450; 71045; 72125; 80053; 81000; 82962; 84484; 85025; 85379; 85610; 85730; 87088; 93005; 93041

== ENCOUNTER 2019-03-04 11:24 | Emergency (ER) | payer OTHER ==
[~2019-03-04] VITALS: Ht 157 cm; Wt 72.7 kg
[~2019-03-04 11:24] MED LIST changes: +CEPH500T PO
[2019-03-04 11:54] LABS: BASOPHILS # (AUTO) 0.1 10^3/uL (0.0-0.1); BASOPHILS % (AUTO) 1 % (0-10); EOSINOPHILS # (AUTO) 0.1 10^3/uL (0.0-0.3); EOSINOPHILS % (AUTO) 1 % (0-10); HEMATOCRIT 45 % (35-52); HEMOGLOBIN 14.5 G/DL (11.5-16.0); LYMPHOCYTES # (AUTO) 1.5 X 10^3 (1.0-4.0); LYMPHOCYTES % (AUTO) 23 % (12-44); MEAN CORPUSCULAR HEMOGLOBIN 28 PG (25-34); MEAN CORPUSCULAR HGB CONC 32 G/DL (32-36); MEAN CORPUSCULAR VOLUME 88 FL (80-99); MEAN PLATELET VOLUME 10.6 FL (7.4-10.4); MONOCYTES # (AUTO) 0.7 X 10^3 (0.0-1.0); MONOCYTES % (AUTO) 10 % (0-12); NEUTROPHILS # (AUTO) 4.1 X 10^3 (1.8-7.8); NEUTROPHILS % (AUTO) 64 % (42-75); PLATELET COUNT 206 10^3/uL (130-400); WHITE BLOOD COUNT 6.3 10^3/uL (4.3-11.0)
[2019-03-04 12:16] LABS: ALBUMIN 3.9 GM/DL (3.2-4.5); BILIRUBIN,TOTAL 0.2 MG/DL (0.1-1.0); CALCIUM 9.1 MG/DL (8.5-10.1); CREATININE SERUM 0.96 MG/DL (0.60-1.30); TOTAL PROTEIN 6.6 GM/DL (6.4-8.2)
--- NOTE | 2019-03-04 12:19 | Diagnostic Imaging Report ---
PROCEDURE: CT head and CT cervical spine without contrast. TECHNIQUE: Multiple contiguous axial images were obtained through the brain and cervical spine without the use of intravenous contrast. Sagittal and coronal reformations through the cervical spine were then performed. Auto Exposure Controls were utilized during the CT exam to meet ALARA standards for radiation dose reduction. INDICATION: Right arm numbness. Correlation is made with prior CT from 11/13/2017. CT HEAD: Areas of low density in the left frontal lobe are noted consistent with old infarcts. There is some sulcal prominence at this location as well consistent with mild volume loss. No sulcal effacement is seen. There is no midline shift. No acute intra-axial or extra-axial hemorrhage is detected. Cisterns are patent. Visualized paranasal sinuses are clear. IMPRESSION: Chronic changes. No acute intracranial process is detected. CT cervical spine: Alignment is normal. There is generalized cervical spondylosis with variable disc space narrowing and marginal spurring. There is multilevel facet arthropathy. No fractures are seen. Prevertebral tissues are within normal limits. The odontoid is intact. IMPRESSION: Cervical spondylosis. No acute abnormality is detected. Dictated by: Dictated on workstation # [id number]
--- NOTE | 2019-03-04 12:27 | ED Neurological Problem ---
General Chief Complaint: Neurological Problems Stated Complaint: R ARM NUMB;WEAKNESS Nursing Triage Note: PT PRESENTS TO ED WITH COMPLAINTS OF R ARM NUMBNESS AND WEAKNESS STARTING THIS AM BUT WORSE WHILE SHE WAS AT WORK TODAY. PT ALSO REPORTS SHE HAS BEEN NON COMPLIANT WITH HER MEDICATIONS FOR ABOUT 1 WEEK BUT DID TAKE THEM THIS AM. Nursing Sepsis Screen: No Definite Risk Source: patient Exam Limitations: no limitations History of Present Illness Date Seen by Provider: Mar 04, 2019 Time Seen by Provider: 11:45 Initial Comments To ER with tingling of the right arm from just above the elbow all the way down affecting all of the fingers. This was first noticed yesterday, more prominent upon awakening this morning. She was still able to type on the keyboard work however this morning. She is employed at [employer]. She states it just feels different. 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 Her symptoms recurred today which is worrisome to her. She was started on aspirin and Plavix 15-20 years ago. She is also a diabetic and misplaced her Plavix losartan and metformin after cleaning out her car 1 week ago, she was without these medications for one week and restarted them this morning when she found them. She also reports nasal congestion, loose stools. Timing/Duration: 24 hours Severity: moderate Associated Symptoms: No numbness in legs/feet; paresthesia; No slurred speech, No tingling in legs/feet, No trouble walking, No vision changes, No weakness Allergies and Home Medications Allergies Coded Allergies: No Known Drug Allergies (Unverified , 03/27/11) Home Medications Aspirin 81 Mg Tabec, 81 MG PO DAILY, (Reported) Calcium Carbonate/Vitamin D3 1 Each Tablet, 1 TAB PO BID, (Reported) Cefdinir 300 Mg Capsule, 300 MG PO BID Prescribed by: AUSTIN LOUIS on 03/21/161812 Cephalexin 500 Mg Tablet, 500 MG PO BID Prescribed by: YRN LANGLEY on 11/13/17 1632 Clopidogrel Bisulfate 75 Mg Tablet, 75 MG PO DAILY, (Reported) Losartan Potassium 50 Mg Tablet, 100 MG PO DAILY, (Reported) Metformin Hcl 1,000 Mg Tablet, 1,000 MG PO BID, (Reported) Simvastatin 80 Mg Tablet, 40 MG PO DAILY, (Reported) Patient Home Medication List Home Medication List Reviewed: Yes Review of Systems Review of Systems Constitutional: see HPI Eyes: No Symptoms Reported Ears, Nose, Mouth, Throat: no symptoms reported Respiratory: no symptoms reported Cardiovascular: no symptoms reported Genitourinary: no symptoms reported Musculoskeletal: no symptoms reported Skin: no symptoms reported Psychiatric/Neurological: See HPI Endocrine: No Symptoms Reported Past Nkzpbon-Zbifpv-Pupolw Hx Patient Social History Alcohol Use: Denies Use Recreational Drug Use: No Smoking Status: Current Everyday Smoker Type Used: Cigarettes 2nd Hand Smoke Exposure: Yes Recent Foreign Travel: No Contact w/Someone Who Travel: No Recent Infectious Disease Expo: No Recent Hopitalizations: No Physical Abuse: No Sexual Abuse: No Mistreated: No Fear: No Immunizations Up To Date Date of Pneumonia Vaccine: Mar 24, 2011 Date of Influenza Vaccine: Mar 24, 2011 Seasonal Allergies Seasonal Allergies: No Past Medical History Surgeries: Yes (LEFT KNEE SRTHROSCOPY) Adenoidectomy, Section, Gallbladder, Hysterectomy, Orthopedic, Tonsillectomy Respiratory: No Cardiac: Yes High Cholesterol, Hypertension Neurological: Yes TIA 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 8.0oz. 77.756796il; 29.00 BMI Method:Stated General Appearance: WD/WN, no apparent distress HEENT: PERRL/EOMI, normal ENT inspection, TMs normal Neck: non-tender, full range of motion Respiratory: no respiratory distress, no accessory muscle use Gastrointestinal: normal bowel sounds, soft Neurologic/Psychiatric: alert, normal mood/affect, oriented x 3 Crainal Nerves: normal hearing, normal speech, PERRL Skin: normal color, warm/dry She has no measurable deficit on NIH. She states her right arm feels different but when I touch both arms, she states that it feels the same on both sides. Display Manager are equal, elbow flexion and extension is equal strength 5 out of 5 bilateral. Stroke Onset of Symptoms Date of Onset of Symptoms: Mar 03, 2019 Time of Symptom Onset: 16:00 Onset of Symptoms: Yes NIH Stroke Scale Assessment Select: Initial Level of Consciousness: 0=Alert (0), Level of Consciousness- Questions: 0=Answers both month/age (0), LOC Commands: 0=Performs both tasks (0), Gaze: Normal (0), Visual Fuentes: 0=No visual loss (0), Facial Movement (Facial Paresis): 0=Normal symmetrical mnt (0), Motor Function-Arms Right: 0=No drift (0), Motor Function-Arms Left: 0=No drift (0), Motor Function-Legs Right: 0=No drift (0), Motor Function-Legs Left: 0=No drift (0), Limb Ataxia: 0=Absent (0), Sensory: 0=Normal:no loss (0), Best Language: 0=No aphasia (0), Dysarthria: 0=Normal (0), Extinction & Inattention: 0=No abnormality (0), Total: 0 Progress/Results/Core Measures Results/Orders Lab Results Laboratory Tests Test 03/04/19 11:35 03/04/19 11:46 Range/Units Glucometer 104 70-110 MG/DL White Blood Count 6.3 4.3-11.0 10^3/uL Red Blood Count 5.11 4.35-5.85 10^6/uL Hemoglobin 14.5 11.5-16.0 G/DL Hematocrit 45 35-52 % Mean Corpuscular Volume 88 80-99 FL Mean Corpuscular Hemoglobin 28 25-34 PG Mean Corpuscular Hemoglobin Concent 32 32-36 G/DL Red Cell Distribution Width 14.0 10.0-14.5 % Platelet Count 206 130-400 10^3/uL Mean Platelet Volume 10.6 H 7.4-10.4 FL Neutrophils (%) (Auto) 64 42-75 % Lymphocytes (%) (Auto) 23 12-44 % Monocytes (%) (Auto) 10 0-12 % Eosinophils (%) (Auto) 1 0-10 % Basophils (%) (Auto) 1 0-10 % Neutrophils # (Auto) 4.1 1.8-7.8 X 10^3 Lymphocytes # (Auto) 1.5 1.0-4.0 X 10^3 Monocytes # (Auto) 0.7 0.0-1.0 X 10^3 Eosinophils # (Auto) 0.1 0.0-0.3 10^3/uL Basophils # (Auto) 0.1 0.0-0.1 10^3/uL Sodium Level 140 135-145 MMOL/L Potassium Level 4.0 3.6-5.0 MMOL/L Chloride Level 110 H 98-107 MMOL/L Carbon Dioxide Level 19 L 21-32 MMOL/L Anion Gap 11 5-14 MMOL/L Blood Urea Nitrogen 15 7-18 MG/DL Creatinine 0.96 0.60-1.30 MG/DL Estimat Glomerular Filtration Rate 59 BUN/Creatinine Ratio 16 Glucose Level 114 H 70-105 MG/DL Calcium Level 9.1 8.5-10.1 MG/DL Corrected Calcium 9.2 8.5-10.1 MG/DL Total Bilirubin 0.2 0.1-1.0 MG/DL Aspartate Amino Transf (AST/SGOT) 28 5-34 U/L Alanine Aminotransferase (ALT/SGPT) 23 0-55 U/L Alkaline Phosphatase 117 40-136 U/L Total Protein 6.6 6.4-8.2 GM/DL Albumin 3.9 3.2-4.5 GM/DL My Orders Orders - ANASTASIYA ALFREDO ECONOMETRICIAN Cbc With Automated Diff (03/04/19 11:48) Comprehensive Metabolic Panel (03/04/19 11:48) Accucheck Stat ONCE (03/04/19 11:48) Ed Iv/Invasive Line Start (03/04/19 11:48) Ct Head/Cervical Spine Wo (03/04/19 11:48) Mri Brain W/O Contrast (03/04/19 12:53) Vital Signs/I&O 03/04/19 11:35 Temp 36.8 Pulse 83 Resp 20 B/P (MAP) 137/92 (107) Pulse Ox 98 Blood Pressure Mean: 107 FSBG Bedside Testing Finger Stick Blood Glucose: 104 Diagnostic Imaging Diagonstic Imaging: CT Comments NAME: ALEX CHAO [employer] REC#: [id number] PT STATUS: REG ER : 1955 PHYSICIAN: ANASTASIYA ALFREDO APRN ADMIT DATE: 03/04/19/ER Draft Date of Exam:03/04/19 CT HEAD/CERVICAL SPINE WO PROCEDURE: CT head and CT cervical spine without contrast. TECHNIQUE: Multiple contiguous axial images were obtained through the brain and cervical spine without the use of intravenous contrast. Sagittal and coronal reformations through the cervical spine were then performed. Auto Exposure Controls were utilized during the CT exam to meet ALARA standards for radiation dose reduction. INDICATION: Right arm numbness. Correlation is made with prior CT from 11/13/2017. CT HEAD: Areas of low density in the left frontal lobe are noted consistent with old infarcts. There is some sulcal prominence at this location as well consistent with mild volume loss. No sulcal effacement is seen. There is no midline shift. No acute intra-axial or extra-axial hemorrhage is detected. Cisterns are patent. Visualized paranasal sinuses are clear. IMPRESSION: Chronic changes. No acute intracranial process is detected. CT cervical spine: Alignment is normal. There is generalized cervical spondylosis with variable disc space narrowing and marginal spurring. There is multilevel facet arthropathy. No fractures are seen. Prevertebral tissues are within normal limits. The odontoid is intact. IMPRESSION: Cervical spondylosis. No acute abnormality is detected. Dictated on workstation # [id number] Dict: 03/04/19 1213 Trans: 03/04/19 1219 [facility] [id number] Interpreted by: JAREN DEVRIES MD Electronically signed by: Departure Communication (Admissions) [id number] discussed the case with Dr. Odell from stroke neurology at [facility]. Recommended no intervention at this time, she should hold her losartan, a bit of hypertension is good in this case, continue the Plavix, add atorvastatin 40 mg daily if she is not already on it. Impression Primary Impression: Chronc Left ICA occlusion Disposition: HOME, SELF-CARE Condition: Stable Departure-Patient Inst. Decision time for Depature: 14:07 Referrals: BHASKAR LEWIS DO (PCP) Primary Care Physician JAMES CHANDLER APRN (Family) Primary Care Physician Patient Instructions: Stroke (DC) Add. Discharge Instructions: 1. Hold your losartan, do not take it for the next week. If your blood pressure goes back up over 140 systolic then you can restart it after discussion with primary care. Continue the Plavix daily. Follow-up with [facility] this week. Return to ER for any concerns. All discharge instructions reviewed with patient and/or family. Voiced und erstanding. Copy Copies To 1: BHASKAR LEWIS PETER J APRN Mar 04, 2019 12:27
--- NOTE | 2019-03-04 13:36 | Diagnostic Imaging Report ---
PROCEDURE: MR imaging of the brain without contrast. TECHNIQUE: Multiplanar, multisequence MR imaging of the brain was performed without contrast. INDICATION: Right arm paresthesia. COMPARISON: Comparison is made to examination of 03/24/2016. FINDINGS: Ventricles and sulci are within normal limits for size. Areas of T2 prolongation are again seen throughout the subcortical white matter of the left hemisphere. This is located predominately within the distribution of left middle cerebral artery with an increase in T2 signal and developing restricted diffusion along the margins of the anterior and middle cerebral artery distribution on the left. There is evidence of signal loss in the high left parietal region which may be due to nonacute petechial hemorrhage. There is absence of flow within the left internal carotid artery at the skull base with apparent reduction in flow void of the left middle cerebral artery, proximally. IMPRESSION: Findings are compatible with high-grade stenosis or occlusion of left distal internal carotid artery. Clinical correlation would be of use. In addition, there is increasing watershed infarct in the left frontal region without mass effect or new hemorrhage. Dictated by: Dictated on workstation # [id number]
[2019-03-04 14:52] VITALS: BP 105/81
== END 2019-03-04 14:52 | disposition home or self-care (01) ==
LOC: EDUNIT# 11:24 → ER 11:26
DX: I65.22 Occlusion and stenosis of left carotid artery (principal); E11.9 Type 2 diabetes mellitus without complications; I10 Essential (primary) hypertension; E78.00 Pure hypercholesterolemia, unspecified; F41.9 Anxiety disorder, unspecified; K21.9 Gastro-esophageal reflux disease without esophagitis; F17.210 Nicotine dependence, cigarettes, uncomplicated; Z90.89 Acquired absence of other organs; Z90.710 Acquired absence of both cervix and uterus; Z86.73 Personal history of transient ischemic attack (TIA), and cerebral infarction without residual deficits; Z79.02 Long term (current) use of antithrombotics/antiplatelets; Z79.84 Long term (current) use of oral hypoglycemic drugs; Z79.82 Long term (current) use of aspirin; Z90.49 Acquired absence of other specified parts of digestive tract
CPT/HCPCS: 36415; 70450; 70551; 72125; 80053; 82962; 85025; 93005

== ENCOUNTER 2020-03-02 09:52 | Emergency (ER) | payer OTHER ==
[~2020-03-02] VITALS: Ht 157.4 cm; Wt 78.0 kg
--- NOTE | 2020-03-02 10:06 | ED Neurological Problem ---
General Chief Complaint: Neurological Problems Stated Complaint: LIPS,ARM NUMBNESS, RAPID HR Source: patient Exam Limitations: no limitations History of Present Illness Date Seen by Provider: Mar 02, 2020 Time Seen by Provider: 10:00 Initial Comments Ms. Fitzpatrick is a 64-year-old who presents to the emergency room today with a chief complaint of "feeling off". Patient states that she has had perioral numbness over the course of the last 3 or 4 days. She is also felt numbness and tingling in her bilateral hands and feet since Monday. Patient states that she has had similar symptoms in the past and she relates that to having vitamin B12 deficiency. Patient states that she had an injection of B12 on the . P atient states she is followed through the [facility] in [facility]. That too takes care of her medications. She missed her last appointment in January and is going to reschedule a follow-up. Patient states that she has had previous stroke/TIA which resulted in right arm flaccid paralysis. She is regained all of her strength and movement in that arm since that time. She states it has been at least 15 to 20 years ago since she had her stroke. Patient was also told that she had a carotid bruit or a murmur in the right side of her neck and was encouraged to follow-up regarding that. She has never followed up. She denies any recent illnesses such as fevers, chills, cough or URI symptoms. No Covid concerns. She denies diarrhea, dysuria urgency or frequency. She is unaware of what her hemoglobin A1c is. All other review of systems reviewed and negative except as stated above. Allergies and Home Medications Allergies Coded Allergies: No Known Drug Allergies (Unverified , 03/27/11) Home Medications Aspirin 81 Mg Tabec, 81 MG PO DAILY, (Reported) Calcium Carbonate/Vitamin D3 1 Each Tablet, 1 TAB PO BID, (Reported) Cefdinir 300 Mg Capsule, 300 MG PO BID Prescribed by: AUSTIN LOUIS on 03/21/161812 Cephalexin 500 Mg Tablet, 500 MG PO BID Prescribed by: YRN LANGLEY on 11/13/17 1632 Clopidogrel Bisulfate 75 Mg Tablet, 75 MG PO DAILY, (Reported) Losartan Potassium 50 Mg Tablet, 100 MG PO DAILY, (Reported) Metformin Hcl 1,000 Mg Tablet, 1,000 MG PO BID, (Reported) Simvastatin 80 Mg Tablet, 40 MG PO DAILY, (Reported) Review of Systems Review of Systems Constitutional: see HPI Eyes: No Symptoms Reported Ears, Nose, Mouth, Throat: mouth pain (Perioral numbness) Respiratory: no symptoms reported Cardiovascular: no symptoms reported Gastrointestinal: no symptoms reported Genitourinary: no symptoms reported Musculoskeletal: no symptoms reported Skin: no symptoms reported Psychiatric/Neurological: Other (Numbness and tingling to the bilateral hands and feet that she states is improved at this time but still "a little numb".) Endocrine: No Symptoms Reported All Other Systems Reviewed Negative Unless Noted: Yes Past Oggqtou-Sohedy-Uktryy Hx Patient Social History Alcohol Use: Denies Use Recreational Drug Use: No Smoking Status: Current Everyday Smoker Type Used: Cigarettes 2nd Hand Smoke Exposure: Yes Recent Foreign Travel: No Contact w/Someone Who Travel: No Recent Hopitalizations: No Immunizations Up To Date Date of Pneumonia Vaccine: Mar 24, 2011 Date of Influenza Vaccine: Mar 24, 2011 Seasonal Allergies Seasonal Allergies: No Past Medical History Surgeries: Yes (LEFT KNEE ARTHROSCOPY) Adenoidectomy, Section, Gallbladder, Hysterectomy, Orthopedic, Tonsillectomy Respiratory: No Cardiac: Yes High Cholesterol, Hypertension Neurological: Yes TIA 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 8.0oz. 77.643382jl; 29.00 BMI Method:Stated General Appearance: WD/WN, no apparent distress HEENT: PERRL/EOMI Neck: full range of motion Respiratory: lungs clear, normal breath sounds, no respiratory distress, no accessory muscle use Cardiovascular: regular rate, rhythm, other (3/6 systolic ejection murmur heard at the right upper sternal border, possible murmur noted in the right carotid) Peripheral Pulses: 2+ Radial Pulses (R), 2+ Radial Pulses (L) Gastrointestinal: non tender, soft Extremities: normal range of motion, non-tender, normal inspection, no pedal edema, no calf tenderness Neurologic/Psychiatric: eligibility consultant II-XII nml as tested, no motor/sensory deficits, alert, normal mood/affect, oriented x 3 Crainal Nerves: normal hearing, normal speech, PERRL Coordination/Gait: normal finger to nose Motor/Sensory: no motor deficit, no sensory deficit Skin: normal color, warm/dry Stroke NIH Stroke Scale Assessment Gaze: Normal (0), Total: 0 Progress/Results/Core Measures Results/Orders Lab Results Laboratory Tests Test 03/02/20 10:00 03/02/20 10:36 Range/Units White Blood Count 11.7 H 4.3-11.0 10^3/uL Red Blood Count 4.61 3.80-5.11 10^6/uL Hemoglobin 13.3 11.5-16.0 g/dL Hematocrit 42 35-52 % Mean Corpuscular Volume 91 80-99 fL Mean Corpuscular Hemoglobin 29 25-34 pg Mean Corpuscular Hemoglobin Concent 32 32-36 g/dL Red Cell Distribution Width 13.7 10.0-14.5 % Platelet Count 301 130-400 10^3/uL Mean Platelet Volume 10.3 9.0-12.2 fL Immature Granulocyte % (Auto) 1 % Neutrophils (%) (Auto) 62 42-75 % Lymphocytes (%) (Auto) 26 12-44 % Monocytes (%) (Auto) 7 0-12 % Eosinophils (%) (Auto) 3 0-10 % Basophils (%) (Auto) 1 0-10 % Neutrophils # (Auto) 7.3 1.8-7.8 10^3/uL Lymphocytes # (Auto) 3.1 1.0-4.0 10^3/uL Monocytes # (Auto) 0.8 0.0-1.0 10^3/uL Eosinophils # (Auto) 0.4 H 0.0-0.3 10^3/uL Basophils # (Auto) 0.1 0.0-0.1 10^3/uL Immature Granulocyte # (Auto) 0.1 0.0-0.1 10^3/uL Sodium Level 138 135-145 MMOL/L Potassium Level 4.0 3.6-5.0 MMOL/L Chloride Level 102 98-107 MMOL/L Carbon Dioxide Level 23 21-32 MMOL/L Anion Gap 13 5-14 MMOL/L Blood Urea Nitrogen 14 7-18 MG/DL Creatinine 0.98 0.60-1.30 MG/DL Estimat Glomerular Filtration Rate 57 BUN/Creatinine Ratio 14 Glucose Level 168 H 70-105 MG/DL Calcium Level 9.5 8.5-10.1 MG/DL Urine Color YELLOW Urine Clarity CLEAR Urine pH 6.0 5-9 Urine Specific [place] <=1.005 1.016-1.022 Urine Protein NEGATIVE NEGATIVE Urine Glucose (UA) NEGATIVE NEGATIVE Urine Ketones NEGATIVE NEGATIVE Urine Nitrite NEGATIVE NEGATIVE Urine Bilirubin NEGATIVE NEGATIVE Urine Urobilinogen 0.2 < = 1.0 MG/DL Urine Leukocyte Esterase TRACE H NEGATIVE Urine RBC (Auto) NEGATIVE NEGATIVE Urine RBC NONE /HPF Urine WBC 0-2 /HPF Urine Squamous Epithelial Cells 0-2 /HPF Urine Crystals NONE /LPF Urine Bacteria NEGATIVE /HPF Urine Casts NONE /LPF Urine Mucus NEGATIVE /LPF Urine Culture Indicated NO My Orders Orders - GIANNA JEFFERSON MD Cbc With Automated Diff (03/02/20 10:15) Basic Metabolic Panel (03/02/20 10:15) Ua Culture If Indicated (03/02/20 10:15) Vital Signs/I&O 03/02/20 09:53 Temp 35.8 Pulse 81 Resp 22 B/P (MAP) 196/89 (124) Pulse Ox 99 O2 Delivery Room Air Progress Progress Note : Time: 10:45 Progress Note 64-year-old female presents with a chief complaint of perioral numbness as well as bilateral numbness and tingling in her hands and feet. Evaluation today includes a physical exam with neurologic examination. Basic laboratory studies have been ordered. Urinalysis is included. Patient clinically has no evidence of CVA at this time. Her NIH is 0. Patient has longstanding diabetes hypertension. Previous stroke. Unlikely this is diabetic neuropathy as the patient has had similar complaints in the past. Patient is encouraged to follow-up with the [facility]. She verbalizes understanding. Disposition will be determined once her laboratory studies have been evaluated. 1110 Labs have been reviewed and are all within normal limits. Blood sugar is mildly elevated in the 160s. No evidence of urinary tract infection. Patient will be discharged home to follow-up with the [facility]. Diagnosis of paresthesias. She is given good return precautions to include if she has unilateral numbness or weakness to return to the emergency department. She verbalizes understanding. All questions are sought and answered and she is stable for disc harge. Departure Impression Primary Impression: Paresthesia Disposition: HOME, SELF-CARE Condition: Stable Departure-Patient Inst. Decision time for Depature: 11:12 Referrals: BHASKAR LEWIS DO (PCP) Primary Care Physician JAMES CHANDLER APRN (Family) Primary Care Physician Patient Instructions: Paresthesia (DC) Add. Discharge Instructions: Drink plenty of fluids to stay well-hydrated. Continue your daily medications as previously prescribed. Please call the [facility] today to reschedule your follow-up appointment. Come back to the emergency room if you have any one-sided weakness with numbness, speech difficulties, balance issues or any other emergent concerning symptoms. GIANNA JEFFERSON MD Mar 02, 2020 10:06
[2020-03-02 10:21] LABS: BASOPHILS # (AUTO) 0.1 10^3/uL (0.0-0.1); BASOPHILS % (AUTO) 1 % (0-10); EOSINOPHILS # (AUTO) 0.4 10^3/uL (0.0-0.3); EOSINOPHILS % (AUTO) 3 % (0-10); HEMATOCRIT 42 % (35-52); HEMOGLOBIN 13.3 g/dL (11.5-16.0); LYMPHOCYTES # (AUTO) 3.1 10^3/uL (1.0-4.0); LYMPHOCYTES % (AUTO) 26 % (12-44); MEAN CORPUSCULAR HEMOGLOBIN 29 pg (25-34); MEAN CORPUSCULAR HGB CONC 32 g/dL (32-36); MEAN CORPUSCULAR VOLUME 91 fL (80-99); MEAN PLATELET VOLUME 10.3 fL (9.0-12.2); MONOCYTES # (AUTO) 0.8 10^3/uL (0.0-1.0); MONOCYTES % (AUTO) 7 % (0-12); NEUTROPHILS # (AUTO) 7.3 10^3/uL (1.8-7.8); NEUTROPHILS % (AUTO) 62 % (42-75); PLATELET COUNT 301 10^3/uL (130-400); WHITE BLOOD COUNT 11.7 10^3/uL (4.3-11.0)
[2020-03-02 10:32] LABS: CALCIUM 9.5 MG/DL (8.5-10.1)
[2020-03-02 10:36] LABS: CREATININE SERUM 0.98 MG/DL (0.60-1.30)
[2020-03-02 10:41] LABS: BILIRUBIN,URINE NEGATIVE (NEGATIVE); CLARITY,URINE CLEAR; COLOR,URINE YELLOW; GLUCOSE, URINE (UA) NEGATIVE (NEGATIVE); KETONES,URINE NEGATIVE (NEGATIVE); LEUKOCYTE ESTERASE ,URINE TRACE (NEGATIVE); NITRITE,URINE NEGATIVE (NEGATIVE); PROTEIN,URINE NEGATIVE (NEGATIVE)
[2020-03-02 10:49] LABS: BACTERIA,URINE NEGATIVE /HPF; SQUAMOUS EPITHELIAL CELL,UR 0-2 /HPF; WBC,URINE 0-2 /HPF
[2020-03-02 11:20] VITALS: BP 142/63
== END 2020-03-02 11:22 | disposition home or self-care (01) ==
LOC: EDUNIT# 09:52 → ER 09:54
DX: R20.2 Paresthesia of skin (principal); I10 Essential (primary) hypertension; E11.9 Type 2 diabetes mellitus without complications; E78.00 Pure hypercholesterolemia, unspecified; F17.210 Nicotine dependence, cigarettes, uncomplicated; Z86.73 Personal history of transient ischemic attack (TIA), and cerebral infarction without residual deficits; Z79.82 Long term (current) use of aspirin
CPT/HCPCS: 36415; 80048; 81000; 85025

== ENCOUNTER 2022-07-09 15:55 | Emergency (ER) | payer OTHER ==
[~2022-07-09] VITALS: Ht 155 cm; Wt 68.0 kg
[2022-07-09 16:37] LABS: BASOPHILS # (AUTO) 0.1 10^3/uL (0.0-0.1); BASOPHILS % (AUTO) 1 % (0-10); EOSINOPHILS # (AUTO) 0.2 10^3/uL (0.0-0.3); EOSINOPHILS % (AUTO) 1 % (0-10); HEMATOCRIT 37 % (35-52); HEMOGLOBIN 12.1 g/dL (11.5-16.0); LYMPHOCYTES # (AUTO) 2.6 X 10^3 (1.0-4.0); LYMPHOCYTES % (AUTO) 19 % (12-44); MEAN CORPUSCULAR HEMOGLOBIN 29 pg (25-34); MEAN CORPUSCULAR HGB CONC 33 g/dL (32-36); MEAN CORPUSCULAR VOLUME 88 fL (80-99); MONOCYTES # (AUTO) 0.8 X 10^3 (0.0-1.0); MONOCYTES % (AUTO) 6 % (0-12); NEUTROPHILS # (AUTO) 10.1 X 10^3 (1.8-7.8); NEUTROPHILS % (AUTO) 74 % (42-75); PLATELET COUNT 356 10^3/uL (130-400); WHITE BLOOD COUNT 13.8 10^3/uL (4.3-11.0)
[2022-07-09 16:45] LABS: CHLORIDE 99 MMOL/L (98-107)
[2022-07-09 16:46] LABS: POTASSIUM 3.9 MMOL/L (3.6-5.0); SODIUM 134 MMOL/L (135-145)
[2022-07-09 16:47] LABS: CALCIUM 9.3 MG/DL (8.5-10.1); GLUCOSE 199 MG/DL (70-105)
[2022-07-09 16:49] LABS: CARBON DIOXIDE 21 MMOL/L (21-32)
[2022-07-09 16:51] LABS: GFR ESTIMATED 71
[2022-07-09 16:52] LABS: BUN/CREATININE RATIO 16
[2022-07-09 16:53] LABS: MAGNESIUM 1.5 MG/DL (1.6-2.4)
[2022-07-09] MEDS ORDERED: HOLD METFORMIN - RECEIVED CONTRAST 20 ML VIAL IV SCH (17:30)
[2022-07-09] MEDS ORDERED: NS 100 ML (IVPB) BAG IV ONE (17:30)
[2022-07-09] MEDS ORDERED: MAGNESIUM 1 GM/100 ML IVPB 100 ML IV ONE (17:30)
[2022-07-09] MEDS ORDERED: IOHEXOL 350 MG/ML 100 ML (OMNIPAQUE 350) VIAL IV ONE (17:30)
--- NOTE | 2022-07-09 18:36 | Diagnostic Imaging Report ---
PROCEDURE: CT angiography of the head and CT angiography of the neck with and without contrast. TECHNIQUE: Contiguous noncontrast images were obtained from the skull base through the vertex. After intravenous contrast administration, helical CT angiography of the neck was performed. Source data was reformatted into 3D MIP projections. Delayed post contrast acquisition was also obtained. Auto Exposure Controls were utilized during the CT exam to meet ALARA standards for radiation dose reduction. INDICATION: Syncope, vascular anomaly within the right neck. COMPARISON: 03/04/2019. FINDINGS: Calcifications within the left greater than right basal ganglia again identified. No intracranial hemorrhage. No intracranial mass, mass effect, midline shift, herniation, hydrocephalus or extra-axial fluid collection. Focal hypodensity within the high left frontal lobe is again identified and unchanged from the prior examination. This likely relates to remote infarction with associated encephalomalacia. Minimal background chronic small vessel white matter ischemic disease. No CT evidence of an acute ischemic infarction. No enhancing intracranial mass lesion. The orbits are unremarkable. The paranasal sinuses are clear. The calvarium and extracalvarial soft tissues are unremarkable. The parapharyngeal fat is symmetric and well-maintained. The muscles of mastication are unremarkable. The salivary glands are unremarkable. The thyroid gland is unremarkable. No pathologically enlarged lymph nodes within the chest. The airway is patent. No apical pneumothorax. A 2 vessel aortic arch is present. Minimal stenosis involving the origin of the left subclavian artery. Mild scattered vascular calcifications are present. Approximately 30% stenosis involving the right carotid bulb. Occlusion of essentially the entirety of the left internal carotid artery is noted. There is collateral flow superiorly via the [place] from the right side via the anterior communicating artery with vascular flow noted within the left middle cerebral artery. Moderate stenosis involving the origin of the right vertebral artery with additional mild to moderate stenosis within the proximal right vertebral artery. The right vertebral artery partially terminates in PICA with the intracranial portion appearing diminutive. The left vertebral artery is unremarkable. Scattered osseous degenerative changes without acute osseous abnormality. IMPRESSION: Occlusion of the left internal carotid artery with collateral flow to the left middle cerebral artery coming via the right side from the anterior communicating artery. Of note, prior imaging from February 2019 suggested that the left internal carotid artery was likely occluded at that time as well. Moderate stenosis involving the origin of the right vertebral artery with additional mild to moderate stenosis within the proximal right vertebral artery. No acute intracranial abnormality with minimal background chronic small vessel white matter ischemic disease. Additional findings as above. Should there remain clinical concern for recent infarction, then further evaluation with MRI of the brain would be recommended. Dictated by: Dictated on workstation # [id number]
--- NOTE | 2022-07-09 18:47 | ED General ---
General Chief Complaint: General Problems/Pain Stated Complaint: ABD PAIN WEAKNESS Nursing Triage Note: PT WITH SON AND DAUGHTER, STATES PT HAS BEEN WEAK, FELT LIKE SHE WAS GOING TO PASS OUT BUT DIDN'T. ONE WEEK AGO PT FELT THIS WAS AND WAS TAKEN TO A HOSP IN [place]. HX OF HYPERGLYCEMIA, HTN, TYPE II DIABETIC, TIA'S. HAD A STOMACH ACHE ABOUT 30 MIN PARAEDUCATOR BEFORE SHE ATE. FAMILY SAY PT IS BEING QUIET AND SHE NORMALLY TALKS A LOT Source of Information: Patient Exam Limitations: No Limitations History of Present Illness Date Seen by Provider: July 09, 2022 Allergies and Home Medications Allergies Coded Allergies: No Known Drug Allergies (Unverified , 03/27/11) Patient Home Medication List Aspirin (Aspirin Ec 81 Mg) 81 Mg Tabec, 81 MG PO DAILY, (Reported) Entered as Reported by: MELISSA BYRNE on 03/27/111928 Calcium Carbonate/Vitamin D3 (Calcium 500+Vit D 400 Tab) 1 Each Tablet, 1 TAB PO BID, (Reported) Entered as Reported by: DANIELLE OALKEY on 06/10/12 0109 Cefdinir (Cefdinir) 300 Mg Capsule, 300 MG PO BID Prescribed by: AUSTIN LOUIS on 03/21/16 1813 Cephalexin (Cephalexin) 500 Mg Tablet, 500 MG PO BID Prescribed by: YRN LANGLEY on 11/13/17 1632 Clopidogrel Bisulfate (Plavix 75 Mg) 75 Mg Tablet, 75 MG PO DAILY, (Reported) Entered as Reported by: MELISSA BYRNE on 03/27/111928 Losartan Potassium (Losartan Potassium) 50 Mg Tablet, 100 MG PO DAILY, (Reported) Entered as Reported by: FRED ANGELO on 06/09/12 1538 Metformin Hcl (Metformin 1000 Mg) 1,000 Mg Tablet, 1,000 MG PO BID, (Reported) Entered as Reported by: MELISSA BYRNE on 03/27/111928 Simvastatin (Simvastatin) 80 Mg Tablet, 40 MG PO DAILY, (Reported) Entered as Reported by: MELISSA BYRNE on 03/27/111928 Past Asdwkkr-Omlbde-Arullp Hx Patient Social History Tobacco Use?: Yes Tobacco type used: Cigarettes Smoking Status: Current Everyday Smoker Substance use?: No Alcohol Use?: No Seasonal Allergies Seasonal Allergies: No Past Medical History Surgery/Hospitalization HX: TYPE II DIABETIC, HTN, TIA'S, 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, 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 Surgeries: Yes (LEFT KNEE ARTHROSCOPY) Adenoidectomy, Section, Gallbladder, Hysterectomy, Orthopedic, Tonsillectomy Respiratory: No Cardiac: Yes High Cholesterol, Hypertension Neurological: Yes TIA Reproductive Disorders: No 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 Sexually Transmitted Disease: No HIV/AIDS: No Genitourinary: No Gastrointestinal: Yes (S/P LAP HAY) Gastroesophageal Reflux, Gall Bladder Disease Musculoskeletal: No Endocrine: Yes Diabetes, Non-Insulin dep HEENT: No Cancer: No Psychosocial: Yes Anxiety Integumentary: No Blood Disorders: No Adverse Reaction/Blood Tranf: No Family Medical History No Pertinent Family Hx Physical Exam Vital Signs Vital Signs - First Documented 07/09/22 16:10 Temp 37.0 Pulse 101 Resp 22 B/P (MAP) 184/81 (115) Pulse Ox 98 O2 Delivery Room Air Capillary Refill : Less Than 3 Seconds Height, Weight, BMI Height: 5'2.00" Weight: 171lbs. 8.0oz. [id number]; 28.00 BMI Method:Stated Progress/Results/Core Measures Suspected Sepsis SIRS Temperature: Pulse: 101 Respiratory Rate: 22 Laboratory Tests 07/09/22 16:30: White Blood Count 13.8H Blood Pressure 184 /81 Mean: 115 Laboratory Tests 07/09/22 16:30: Creatinine 0.90, Platelet Count 356 Results/Orders Lab Results Laboratory Tests Test 07/09/22 16:30 Range/Units White Blood Count 13.8 H 4.3-11.0 10^3/uL Red Blood Count 4.24 3.80-5.11 10^6/uL Hemoglobin 12.1 11.5-16.0 g/dL Hematocrit 37 35-52 % Mean Corpuscular Volume 88 80-99 fL Mean Corpuscular Hemoglobin 29 25-34 pg Mean Corpuscular Hemoglobin Concent 33 32-36 g/dL Red Cell Distribution Width 14.1 10.0-14.5 % Platelet Count 356 130-400 10^3/uL Mean Platelet Volume 9.0 9.0-12.2 fL Immature Granulocyte % (Auto) 0 % Neutrophils (%) (Auto) 74 42-75 % Lymphocytes (%) (Auto) 19 12-44 % Monocytes (%) (Auto) 6 0-12 % Eosinophils (%) (Auto) 1 0-10 % Basophils (%) (Auto) 1 0-10 % Neutrophils # (Auto) 10.1 H 1.8-7.8 X 10^3 Lymphocytes # (Auto) 2.6 1.0-4.0 X 10^3 Monocytes # (Auto) 0.8 0.0-1.0 X 10^3 Eosinophils # (Auto) 0.2 0.0-0.3 10^3/uL Basophils # (Auto) 0.1 0.0-0.1 10^3/uL Immature Granulocyte # (Auto) 0.1 0.0-0.1 10^3/uL Sodium Level 134 L 135-145 MMOL/L Potassium Level 3.9 3.6-5.0 MMOL/L Chloride Level 99 98-107 MMOL/L Carbon Dioxide Level 21 21-32 MMOL/L Anion Gap 14 5-14 MMOL/L Blood Urea Nitrogen 14 7-18 MG/DL Creatinine 0.90 0.60-1.30 MG/DL Estimat Glomerular Filtration Rate 71 BUN/Creatinine Ratio 16 Glucose Level 199 H 70-105 MG/DL Calcium Level 9.3 8.5-10.1 MG/DL Magnesium Level 1.5 L 1.6-2.4 MG/DL Troponin I < 0.028 <0.028 NG/ML My Orders Orders - GEO MARR MD Basic Metabolic Panel (07/09/22 16:26) Cbc With Automated Diff (07/09/22 16:26) Magnesium (07/09/22 16:26) Ed Iv/Invasive Line Start (07/09/22 16:26) Ekg Tracing (07/09/22 16:26) Monitor-Rhythm Ecg Trace Only (07/09/22 16:26) Troponin I Gabriel (07/09/22 16:26) Ct Angio Head/Neck (07/09/22 17:16) Magnesium 1 Gm/100 Ml Ivpb (Magnesium Fernandes (07/09/22 17:30) Iohexol Injection (Omnipaque 350 Mg/Ml 1 (07/09/22 17:30) Received Contrast (Hold Metformin- Contr (07/09/22 17:30) Ns (Ivpb) (Sodium Chloride 0.9% Ivpb Bag (07/09/22 17:30) Medications Given in ED Current Medications Medications Dose Ordered Sig/Alexandra Route Start Time Stop Time Status Last Admin Dose Admin Iohexol 100 ml ONCE ONCE IV 07/09/22 17:30 07/09/22 17:31 DC 07/09/22 17:57 75 ML Magnesium Sulfate/ Dextrose 100 ml @ 100 mls/hr ONCE ONCE IV 07/09/22 17:30 07/09/22 18:29 DC 07/09/22 18:09 100 MLS/HR Sodium Chloride 100 ml ONCE ONCE IV 07/09/22 17:30 07/09/22 17:31 DC 07/09/22 17:57 80 ML Vital Signs/I&O 07/09/22 16:10 Temp 37.0 Pulse 101 Resp 22 B/P (MAP) 184/81 (115) Pulse Ox 98 O2 Delivery Room Air Capillary Refill : Less Than 3 Seconds Blood Pressure Mean: 115 Departure Impression Primary Impression: Lightheadedness Additional Impressions: Abdominal discomfort Occlusion of left internal carotid artery Stenosis of right vertebral artery Disposition: HOME, SELF-CARE Condition: Improved Departure-Patient Inst. Decision time for Depature: 19:08 Referrals: BHASKAR LEWIS DO (PCP) Primary Care Physician JAMES CHANDLER APRN (Family) Primary Care Physician DEBORAH DORMAN MD Patient Instructions: Carotid artery disease, Syncope (fainting) Add. Discharge Instructions: Follow-up with your primary care provider and Dr. Dorman as soon as possible. Please call for an appointment on Monday. Dr. Dorman's number is below. Take aspirin 81 mg daily and your Plavix (clopidogrel) It is absolutely necessary that you quit smoking. Please seek help from your primary care provider if needed. Return to the emergency room if you have any worsening of symptoms including recurrent episodes of lightheadedness or syncope (passing out), chest pain, shortness of breath, etc. Seek immediate medical attention if you have any strokelike symptoms including weakness or persistent numbness on one side of the body, facial drooping, difficulty generating or understanding speech, sudden vision changes, loss of balance, confusion, etc. All discharge instructions reviewed with patient and/or family. Voiced understanding. GEO MARR MD July 09, 2022 18:47
[2022-07-09 19:33] VITALS: BP 164/74
== END 2022-07-09 19:38 | disposition home or self-care (01) ==
LOC: EDUNIT# 15:55 → ER 15:57
DX: I65.22 Occlusion and stenosis of left carotid artery (principal); I65.01 Occlusion and stenosis of right vertebral artery; R10.9 Unspecified abdominal pain; F17.210 Nicotine dependence, cigarettes, uncomplicated; Z90.49 Acquired absence of other specified parts of digestive tract
CPT/HCPCS: 36415; 70496; 70498; 80048; 83735; 84484; 85025; 93005

== ENCOUNTER 2022-08-06 08:16 | Observation (INO) | payer OTHER ==
[~2022-08-06] VITALS: Ht 157 cm; Wt 67.8 kg
[2022-08-06] MEDS ORDERED: LACTATED RINGERS 1,000 ML IV ONE (08:45)
[2022-08-06] MEDS ORDERED: fentaNYL INJ 100 MCG/2 ML AMP IVP ONE ×2 (08:45→12:15)
[2022-08-06 09:12] LABS: BASOPHILS # (AUTO) 0.1 10^3/uL (0.0-0.1); BASOPHILS % (AUTO) 1 % (0-10); EOSINOPHILS # (AUTO) 0.2 10^3/uL (0.0-0.3); EOSINOPHILS % (AUTO) 1 % (0-10); HEMATOCRIT 38 % (35-52); HEMOGLOBIN 12.3 g/dL (11.5-16.0); LYMPHOCYTES # (AUTO) 2.1 10^3/uL (1.0-4.0); LYMPHOCYTES % (AUTO) 14 % (12-44); MEAN CORPUSCULAR HEMOGLOBIN 28 pg (25-34); MEAN CORPUSCULAR HGB CONC 32 g/dL (32-36); MEAN CORPUSCULAR VOLUME 89 fL (80-99); MEAN PLATELET VOLUME 10.2 fL (9.0-12.2); MONOCYTES # (AUTO) 1.5 10^3/uL (0.0-1.0); MONOCYTES % (AUTO) 10 % (0-12); NEUTROPHILS # (AUTO) 10.8 10^3/uL (1.8-7.8); NEUTROPHILS % (AUTO) 74 % (42-75); PLATELET COUNT 348 10^3/uL (130-400); WHITE BLOOD COUNT 14.8 10^3/uL (4.3-11.0)
[2022-08-06 09:23] LABS: INR 0.9 (0.8-1.4); PROTHROMBIN TIME PATIENT 12.7 SEC (12.2-14.7)
[2022-08-06 09:25] LABS: POTASSIUM 3.6 MMOL/L (3.6-5.0)
[2022-08-06 09:26] LABS: CALCIUM 10.1 MG/DL (8.5-10.1)
[2022-08-06 09:27] LABS: TOTAL PROTEIN 7.6 GM/DL (6.4-8.2)
[2022-08-06 09:29] LABS: BILIRUBIN,TOTAL 0.4 MG/DL (0.1-1.0)
[2022-08-06 09:31] LABS: CREATININE SERUM 0.88 MG/DL (0.60-1.30)
--- NOTE | 2022-08-06 09:35 | ED General ---
General Chief Complaint: Oral/Throat Problems Stated Complaint: TONSILLAR ABSCESS Nursing Triage Note: pt presents to ED with c/o sore throat and patches on tonsils. pt diagnosed with strep throat 5 days and rx cephalexin but infection has gotten worse since. pt sent by [facility] for concerns for tonsillar abscess. Source of Information: Patient Exam Limitations: No Limitations History of Present Illness Date Seen by Provider: Aug 06, 2022 Time Seen by Provider: 08:30 Initial Comments This 66-year-old woman presents to the emergency room as directed by the [facility] walk-in clinic for concern about possible peritonsillar abscess. She was seen in the clinic on August 02 and had a positive rapid strep test. Since then she has been taking cephalexin 500 mg twice daily without improvement. Now she has swelling in the right throat, muffled voice, and more discomfort with swallowing. She is not having difficulty breathing. She has been afebrile but noted to be tachycardic with a heart rate of 104 at the clinic. She is diabetic. She had been seen a few weeks ago for syncopal and near syncopal episodes with carotid artery disease noted on imaging. She has since quit smoking. She has a pending referral to a vascular surgeon in [place] and is under the care of Dr. Dorman. Allergies and Home Medications Allergies Coded Allergies: No Known Drug Allergies (Unverified , 03/27/11) Patient Home Medication List Home Medication List Reviewed: Yes Aspirin (Aspirin Ec 81 Mg) 81 Mg Tabec, 81 MG PO DAILY, (Reported) Entered as Reported by: MELISSA BYRNE on 03/27/111928 Calcium Carbonate/Vitamin D3 (Calcium 500+Vit D 400 Tab) 1 Each Tablet, 1 TAB PO BID, (Reported) Entered as Reported by: DANIELLE OAKLEY on 06/10/12 0109 Cefdinir (Cefdinir) 300 Mg Capsule, 300 MG PO BID Prescribed by: AUSTIN LOUIS on 03/21/16 181 Cephalexin (Cephalexin) 500 Mg Tablet, 500 MG PO BID Prescribed by: YRN LANGLEY on 11/13/17 1632 Clopidogrel Bisulfate (Plavix 75 Mg) 75 Mg Tablet, 75 MG PO DAILY, (Reported) Entered as Reported by: MELISSA BYRNE on 03/27/111928 Losartan Potassium (Losartan Potassium) 50 Mg Tablet, 100 MG PO DAILY, (Reported) Entered as Reported by: FRED ANGELO on 06/09/12 1538 Metformin Hcl (Metformin 1000 Mg) 1,000 Mg Tablet, 1,000 MG PO BID, (Reported) Entered as Reported by: MELISSA BYRNE on 03/27/111928 Simvastatin (Simvastatin) 80 Mg Tablet, 40 MG PO DAILY, (Reported) Entered as Reported by: MELISSA BYRNE on 03/27/111928 Review of Systems Review of Systems Constitutional: no symptoms reported EENTM: see HPI Respiratory: no symptoms reported Cardiovascular: no symptoms reported Gastrointestinal: no symptoms reported Genitourinary: no symptoms reported : No Musculoskeletal: no symptoms reported Skin: no symptoms reported Psychiatric/Neurological: No Symptoms Reported Hematologic/Lymphatic: No Symptoms Reported Past Zpzowci-Kkmtnp-Alstpf Hx Patient Social History Tobacco Use?: No Smoking Status: Former Smoker Substance use?: No Alcohol Use?: No Pt feels they are or have been: No Seasonal Allergies Seasonal Allergies: No Past Medical History Surgery/Hospitalization HX: TYPE II DIABETIC, HTN, TIA'S, HAY, 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 Surgeries: Yes (LEFT KNEE ARTHROSCOPY) Adenoidectomy, Section, Gallbladder, Hysterectomy, Orthopedic, Tonsil lectomy Respiratory: No Cardiac: Yes High Cholesterol, Hypertension, Peripheral Vascular (Carotid artery stenosis), Syncope Neurological: Yes TIA Reproductive Disorders: No [employer] History: Menopausal Sexually Transmitted Disease: No HIV/AIDS: No Genitourinary: No Gastrointestinal: Yes (S/P LAP HAY) Gastroesophageal Reflux, Gall Bladder Disease Musculoskeletal: No Endocrine: Yes Diabetes, Non-Insulin dep HEENT: No Cancer: No Psychosocial: Yes Anxiety Integumentary: No Blood Disorders: No Adverse Reaction/Blood Tranf: No Family Medical History No Pertinent Family Hx Physical Exam Vital Signs Vital Signs - First Documented 08/06/22 08:23 Temp 36.3 Pulse 106 Resp 18 B/P (MAP) 149/97 (114) Pulse Ox 98 O2 Delivery Room Air Capillary Refill : Height, Weight, BMI Height: 5'2.00" Weight: 171lbs. 8.0oz. 77.206612az; 27.00 BMI Method:Stated General Appearance: No Apparent Distress, WD/WN HEENT: PERRL/EOMI, TMs Normal, Other (Muffled voice. 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 Posterior pharynx was anesthetized with HurriCaine spray. Lidocaine with epinephrine was then injected to provide local anesthetic. About 0.5 mL of lidocaine with epinephrine was administered. Needle guards were used with the lidocaine injections and aspiration needle to prevent accidental injury of underlying structures. An 18-gauge needle was introduced into the most fluctuant aspect of the abscess. Approximately 1 mL of purulent material was aspirated from the abscess. This was sent for culture. Purulent material continued to drain from the abscess. The aspiration needle was again introduced into the abscess and an additional small quantity of purulent material was aspirated. The abscess continued to drain it through the puncture hole. A Shine catheter was used to suction purulent material out during the procedure. During the procedure it was noted that a spontaneous rupture of the abscess occurred inferiorly. A thick glob of loculated purulent material was extracted in 1 piece from this ruptured site. It was approximately another 1 mL in volume. All 3 openings continued to drain and patient was provided ice water to swish and spit the drainage. Bleeding was very scant. Patient tolerated the procedure very well. Progress/Results/Core Measures Suspected Sepsis SIRS Temperature: Pulse: 106 Respiratory Rate: 18 Laboratory Tests 08/06/22 08:55: White Blood Count 14.8H Blood Pressure 149 /97 Mean: 114 08/06/22 08:55: Lactic Acid Level 0.93 Laboratory Tests 08/06/22 08:55: Creatinine 0.88, INR Comment 0.9, Platelet Count 348, Total Bilirubin 0.4 Results/Orders Lab Results Laboratory Tests Test 08/06/22 08:55 Range/Units White Blood Count 14.8 H 4.3-11.0 10^3/uL Red Blood Count 4.33 3.80-5.11 10^6/uL Hemoglobin 12.3 11.5-16.0 g/dL Hematocrit 38 35-52 % Mean Corpuscular Volume 89 80-99 fL Mean Corpuscular Hemoglobin 28 25-34 pg Mean Corpuscular Hemoglobin Concent 32 32-36 g/dL Red Cell Distribution Width 13.7 10.0-14.5 % Platelet Count 348 130-400 10^3/uL Mean Platelet Volume 10.2 9.0-12.2 fL Immature Granulocyte % (Auto) 1 % Neutrophils (%) (Auto) 74 42-75 % Lymphocytes (%) (Auto) 14 12-44 % Monocytes (%) (Auto) 10 0-12 % Eosinophils (%) (Auto) 1 0-10 % Basophils (%) (Auto) 1 0-10 % Neutrophils # (Auto) 10.8 H 1.8-7.8 10^3/uL Lymphocytes # (Auto) 2.1 1.0-4.0 10^3/uL Monocytes # (Auto) 1.5 H 0.0-1.0 10^3/uL Eosinophils # (Auto) 0.2 0.0-0.3 10^3/uL Basophils # (Auto) 0.1 0.0-0.1 10^3/uL Immature Granulocyte # (Auto) 0.1 0.0-0.1 10^3/uL Neutrophils % (Manual) 75 % Lymphocytes % (Manual) 17 % Monocytes % (Manual) 6 % Eosinophils % (Manual) 1 % Basophils % (Manual) 0 % Band Neutrophils 1 % Blood Morphology Comment NORMAL Prothrombin Time 12.7 12.2-14.7 SEC INR Comment 0.9 0.8-1.4 Activated Partial Thromboplast Time 30 24-35 SEC Sodium Level 138 135-145 MMOL/L Potassium Level 3.6 3.6-5.0 MMOL/L Chloride Level 106 98-107 MMOL/L Carbon Dioxide Level 21 21-32 MMOL/L Anion Gap 11 5-14 MMOL/L Blood Urea Nitrogen 19 H 7-18 MG/DL Creatinine 0.88 0.60-1.30 MG/DL Estimat Glomerular Filtration Rate 72 BUN/Creatinine Ratio 22 Glucose Level 199 H 70-105 MG/DL Lactic Acid Level 0.93 0.50-2.00 MMOL/L Calcium Level 10.1 8.5-10.1 MG/DL Corrected Calcium 10.1 8.5-10.1 MG/DL Total Bilirubin 0.4 0.1-1.0 MG/DL Aspartate Amino Transf (AST/SGOT) 14 5-34 U/L Alanine Aminotransferase (ALT/SGPT) 28 0-55 U/L Alkaline Phosphatase 136 40-136 U/L Total Protein 7.6 6.4-8.2 GM/DL Albumin 4.0 3.2-4.5 GM/DL My Orders Orders - GEO MARR MD Cbc With Automated Diff (08/06/22 08:43) Comprehensive Metabolic Panel (08/06/22 08:43) Blood Culture (08/06/22 08:43) Sputum Culture (08/06/22 08:43) Protime With Inr (08/06/22 08:43) Partial Thromboplastin Time (08/06/22 08:43) Ed Iv/Invasive Line Start (08/06/22 08:43) Vital Signs Adult Sepsis Patie Q15M (08/06/22 08:43) O2 (08/06/22 08:43) Remove Rings In Anticipation O (08/06/22 08:43) Lactic Acid Analyzer (08/06/22 08:43) Wound Culture (08/06/22 08:43) Fentanyl Inj (Sublimaze Injection) (08/06/22 08:45) Lactated Ringers (Lr 1000 Ml Iv Solution (08/06/22 08:45) Manual Differential (08/06/22 08:55) Ct Neck (Soft Tissue) W (08/06/22 09:37) Iohexol Injection (Omnipaque 350 Mg/Ml 1 (08/06/22 09:45) Received Contrast (Hold Metformin- Contr (08/06/22 09:45) Ns (Ivpb) (Sodium Chloride 0.9% Ivpb Bag (08/06/22 09:45) Lidocaine/Epi 2% 1:100,000 (Xylocaine/Ep (08/06/22 11:45) Lidocaine/Epi Mpf 2% 1:200,000 (Xylocain (08/06/22 11:56) Fentanyl Inj (Sublimaze Injection) (08/06/22 12:15) Benzocaine Extension Tube (Hurricaine Ex (08/06/22 12:15) Piperacillin Sodium/Tazobactam (Zosyn Vi (08/06/22 13:00) Medications Given in ED Current Medications Medications Dose Ordered Sig/Alexandra Route Start Time Stop Time Status Last Admin Dose Admin Benzocaine 1 ea ONCE ONCE XX 08/06/22 12:15 08/06/22 12:16 DC 08/06/22 12:32 1 EA Fentanyl Citrate 50 mcg ONCE ONCE IVP 08/06/22 08:45 08/06/22 08:46 DC 08/06/22 09:00 50 MCG Fentanyl Citrate 50 mcg ONCE ONCE IVP 08/06/22 12:15 08/06/22 12:16 DC 08/06/22 12:32 50 MCG Iohexol 75 ml ONCE ONCE IV 08/06/22 09:45 08/06/22 09:46 DC 08/06/22 09:54 75 ML Lactated Ringer's 1,000 ml @ 0 mls/hr Q0M ONCE IV 08/06/22 08:45 08/06/22 08:46 DC 08/06/22 09:00 1,000 MLS/HR Lidocaine/ Epinephrine 20 ml ONCE ONCE INJ 08/06/22 11:45 08/06/22 11:46 DC 08/06/22 12:32 20 ML Piperacillin Sod/ Tazobactam Sod 4.5 gm/Sodium Chloride 100 ml @ 200 mls/hr ONCE ONCE IV 08/06/22 13:00 08/06/22 13:29 DC 08/06/22 13:25 200 MLS/HR Sodium Chloride 100 ml ONCE ONCE IV 08/06/22 09:45 08/06/22 09:46 DC 08/06/22 09:54 80 ML Vital Signs/I&O 08/06/22 08:23 Temp 36.3 Pulse 106 Resp 18 B/P (MAP) 149/97 (114) Pulse Ox 98 O2 Delivery Room Air Capillary Refill : Blood Pressure Mean: 114 Progress Note #1: Time: 10:35 Progress Note Patient was interviewed and examined. There was suspicion for peritonsillar abscess. Labs were obtained, reviewed, and interpreted by me. CBC was remarkable for leukocytosis of 14.8. CMP was notable for hyperglycemia of 199. Lactic acid was normal. Patient was treated with a liter of LR due to the noted tachycardia. Fentanyl was administered for pain. After review of labs, CT of the neck soft tissues with contrast was obtained. CT was viewed by me. By my interpretation there is a peritonsillar abscess measuring nearly 2 cm on the right. There was no concern for airway obstruction. Patient does meet septic criteria with tachycardia, leukocytosis, and source of infection. Blood cultures are being obtained. Anticipate incision and drainage of peritonsillar abscess and IV antibiotics with Zosyn. Admission may be appropriate for this patient given her history of diabetes and present of SIRS. Progress Note #2: Time: 10:41 Progress Note Radiologist's report was reviewed and concurs with the diagnosis of peritonsillar abscess measuring 2.3 x 2.3 cm. Patient will be offered incision and drainage here in the ER. Progress Note #3: Progress Note The case was discussed with Dr. Leticia Manzano, ENT at [place]. We discussed patient's use of aspirin and Plavix. Her last dose was over [address] Manzano recommended aspiration of the abscess but not incision given the antiplatelet therapies. She did not believe transfer was necessary based on information provided to her. I discussed risks and benefits with the patient. Risks included pain and bleeding. Risks of performing the procedure here included no immediate access to ENT providers. Benefits of incision and drainage here included more timely treatment and less complication with care by avoiding transfer. Patient elected to proceed with aspiration here in the ER. Aspiration was performed successfully, and patient tolerated it well. See the procedure note. Patient received a dose of Zosyn in the emergency room. Case was reviewed with Dr. Cabral who agreed to admission. Due to patient's risk factors of age, diabetes, presence of SIRS, etc., admission for observation overnight and continued IV antibiotics was deemed appropriate. Diagnostic Imaging Diagonstic Imaging: CT Plain Films/CT/US/NM/MRI: other (Soft tissues neck) Comments NAME: ALEX CHAO [facility] REC#: [id number] PT STATUS: REG ER : 1955 PHYSICIAN: GEO MARR MD ADMIT DATE: 08/06/22/ER Signed Date of Exam:08/06/22 CT NECK (SOFT TISSUE) W PROCEDURE: CT neck soft tissue with contrast. TECHNIQUE: Multiple contiguous axial images were obtained through the neck after the administration of contrast. Auto Exposure Controls were utilized during the CT exam to meet ALARA standards for radiation dose reduction. Date: August 06, 2022. Indication: 66-year-old female, sore throat. Concern for peritonsillar abscess. Comparison: CT angiography head and neck July 09, 2022. Findings: There is a peripherally enhancing mass measuring 2.3 x 2.3 cm in axial extent as measured on axial image 32 which is new since the prior exam. There is significant associated mass effect. This is compatible with peritonsillar abscess in the appropriate clinical scenario. There is also tonsillar prominence bilaterally. There is mass effect on the airway. There is no particularly prominent high-grade narrowing of the airway. The thyroid gland, bilateral submandibular glands, and bilateral parotid glands are grossly unremarkable in appearance. There are symmetric prominent cervical lymph nodes bilaterally. There is a right sided cervical lymph node measuring 1.5 cm in short axis on axial image 46. Several additional prominent bilateral cervical lymph nodes are also present. Visualized portions of the lungs are clear. There are atherosclerotic calcifications. Partially visualized portions of the orbits are unremarkable. There are multilevel degenerative changes of the spine. There is no identified acute bony abnormality. Impression: 1. Peripherally enhancing low-attenuation mass along the right side of the tonsils consistent with a peritonsillar abscess in the appropriate clinical scenario. 2. Multiple prominent bilateral cervical lymph nodes which are most likely reactive. 3. Both findings are new since July 09, 2022. Dictated by: Dictated on workstation # [id number] Dict: 08/06/22 1005 Trans: 08/06/22 1029 [facility] [id number] Interpreted by: TACO ROQUE MD Electronically signed by: TACO ROQUE MD 08/06/22 1029 Departure Communication (Admissions) Time/Spoke to Admitting Phy: 13:30 Dr. Cabral Impression Primary Impression: Peritonsillar abscess Additional Impressions: Encounter for incision and drainage procedure Sepsis Qualified Codes: A40.0 - Sepsis due to Streptococcus, group A Disposition: ADMITTED INPATIENT Condition: Improved Admissions Decision to Admit Reason: Admit from ER (General) Decision to Admit/Date: Aug 06, 2022 Time/Decision to Admit Time: 13:30 Departure-Patient Inst. Decision time for Depature: 10:58 Referrals: BHASKAR LEWIS DO (PCP) Primary Care Physician JAMES CHANDLER APRN (Family) Primary Care Physician Copy Copies To 1: [facility]/GEO CHI MD Aug 06, 2022 09:35
[2022-08-06 09:36] LABS: BAND NEUTROPHILS 1 %; BASOPHILS % (MANUAL) 0 %; EOSINOPHILS % (MANUAL) 1 %; LYMPHOCYTES % (MANUAL) 17 %; MONOCYTES % (MANUAL) 6 %; NEUTROPHILS % (MANUAL) 75 %; RBC MORPH NORMAL
[2022-08-06] MEDS ORDERED: NS 100 ML (IVPB) BAG IV ONE (09:45)
[2022-08-06] MEDS ORDERED: HOLD METFORMIN - RECEIVED CONTRAST 20 ML VIAL IV SCH (09:45)
[2022-08-06] MEDS ORDERED: IOHEXOL 350 MG/ML 100 ML (OMNIPAQUE 350) VIAL IV ONE (09:45)
--- NOTE | 2022-08-06 10:30 | Diagnostic Imaging Report ---
PROCEDURE: CT neck soft tissue with contrast. TECHNIQUE: Multiple contiguous axial images were obtained through the neck after the administration of contrast. Auto Exposure Controls were utilized during the CT exam to meet ALARA standards for radiation dose reduction. Date: August 06, 2022. Indication: 66-year-old female, sore throat. Concern for peritonsillar abscess. Comparison: CT angiography head and neck July 09, 2022. Findings: There is a peripherally enhancing mass measuring 2.3 x 2.3 cm in axial extent as measured on axial image 32 which is new since the prior exam. There is significant associated mass effect. This is compatible with peritonsillar abscess in the appropriate clinical scenario. There is also tonsillar prominence bilaterally. There is mass effect on the airway. There is no particularly prominent high-grade narrowing of the airway. The thyroid gland, bilateral submandibular glands, and bilateral parotid glands are grossly unremarkable in appearance. There are symmetric prominent cervical lymph nodes bilaterally. There is a right sided cervical lymph node measuring 1.5 cm in short axis on axial image 46. Several additional prominent bilateral cervical lymph nodes are also present. Visualized portions of the lungs are clear. There are atherosclerotic calcifications. Partially visualized portions of the orbits are unremarkable. There are multilevel degenerative changes of the spine. There is no identified acute bony abnormality. Impression: 1. Peripherally enhancing low-attenuation mass along the right side of the tonsils consistent with a peritonsillar abscess in the appropriate clinical scenario. 2. Multiple prominent bilateral cervical lymph nodes which are most likely reactive. 3. Both findings are new since July 09, 2022. Dictated by: Dictated on workstation # [id number]
[2022-08-06] MEDS ORDERED: LIDOCAINE/EPI 2% 1:100,00 (XYLOCAINE) 20 ML VIAL INJ ONE (11:45)
[2022-08-06] MEDS ORDERED: LIDOCAINE/EPI 2% 1:200,00 (XYLOCAINE) 20 ML VIAL ONE (11:56)
[2022-08-06] MEDS ORDERED: HURRICAINE EXT TUBE (BENZOCAINE) XX ONE (12:15)
[2022-08-06] MEDS ORDERED: PIPERACILLIN SODIUM/TAZOBACTAM 4.5 GM in NS (IVPB) 100 ML IV ONE (13:00)
[2022-08-06] MEDS ORDERED: LOSARTAN 50 MG (COZAAR) TAB PO ONE (13:45)
[2022-08-06] MEDS ORDERED: ONDANSETRON 4 MG/2 ML (SDV) Z0FRAN IV PRN (14:15)
[2022-08-06] MEDS ORDERED: fentaNYL INJ 100 MCG/2 ML AMP IV PRN (14:15)
[2022-08-06 16:13] VITALS: BP 145/88
[2022-08-06] MEDS: PIPERACILLIN SODIUM/TAZOBACTAM 4.5 GM in NS (IVPB) 100 ML IV SCH (18:04)
[2022-08-06 19:18] VITALS: BP 129/73
[2022-08-06] MEDS: ACETAMINOPHEN 500 MG TAB (TYLENOL) PO PRN (22:23)
[2022-08-06 23:28] VITALS: BP 111/66
[2022-08-07 03:23] VITALS: BP 144/81
[2022-08-07] MEDS: PIPERACILLIN SODIUM/TAZOBACTAM 4.5 GM in NS (IVPB) 100 ML IV SCH ×3 (03:28→18:28)
[2022-08-07 03:47] LABS: BASOPHILS # (AUTO) 0.1 10^3/uL (0.0-0.1); BASOPHILS % (AUTO) 1 % (0-10); EOSINOPHILS # (AUTO) 0.2 10^3/uL (0.0-0.3); EOSINOPHILS % (AUTO) 2 % (0-10); HEMATOCRIT 35 % (35-52); HEMOGLOBIN 11.2 g/dL (11.5-16.0); LYMPHOCYTES # (AUTO) 3.6 10^3/uL (1.0-4.0); LYMPHOCYTES % (AUTO) 37 % (12-44); MEAN CORPUSCULAR HEMOGLOBIN 28 pg (25-34); MEAN CORPUSCULAR HGB CONC 32 g/dL (32-36); MEAN CORPUSCULAR VOLUME 88 fL (80-99); MONOCYTES % (AUTO) 11 % (0-12); NEUTROPHILS # (AUTO) 4.6 10^3/uL (1.8-7.8); NEUTROPHILS % (AUTO) 47 % (42-75); PLATELET COUNT 339 10^3/uL (130-400); WHITE BLOOD COUNT 9.6 10^3/uL (4.3-11.0)
[2022-08-07 04:00] LABS: POTASSIUM 3.8 MMOL/L (3.6-5.0)
[2022-08-07 04:01] LABS: CALCIUM 9.6 MG/DL (8.5-10.1)
[2022-08-07 04:05] LABS: CREATININE SERUM 0.85 MG/DL (0.60-1.30)
[2022-08-07 07:48] VITALS: BP 132/63
[2022-08-07] MEDS: CLOPIDOGREL 75 MG (PLAVIX) TABLET PO SCH (08:54)
[2022-08-07] MEDS: ACETAMINOPHEN 500 MG TAB (TYLENOL) PO PRN (08:54)
[2022-08-07] MEDS: LOSARTAN 50 MG (COZAAR) TAB PO SCH (08:54)
[2022-08-07] MEDS: ASPIRIN E.C. 81 MG (ECOTRIN) TAB PO SCH (08:54)
--- NOTE | 2022-08-07 12:05 | History & Physical-Hospitalist ---
History of Present Illness HPI/Chief Complaint This 66-year-old woman presents to the emergency room as directed by the [facility] walk-in clinic for concern about possible peritonsillar abscess. She was seen in the clinic on August 02 and had a positive rapid strep test. Since then she has been taking cephalexin 500 mg twice daily without improvement. Now she has swelling in the right throat, muffled voice, and more discomfort with swallowing. She is not having difficulty breathing. She has been afebrile but noted to be tachycardic with a heart rate of 104 at the clinic. She is diabetic. She had been seen a few weeks ago for syncopal and near syncopal episodes with carotid artery disease noted on imaging. She has since quit smoking. She has a pending referral to a vascular surgeon in [place] and is under the care of Dr. Dorman Upon my arrival the patient ports she is feeling much better able to swallow no chills or fever reported through the night. Denies shortness of breath with less throat pain. Date Seen 08/07/22 Time Seen by a Provider: 11:15 Attending Physician Lyndsey Ascencio DO PCP Admitting Physician: Ro Sauceda MD Attending Physician: Ro Sauceda MD Referring Physician Date of Admission Aug 06, 2022 at 13:30 Home Medications & Allergies Home Medications Reviewed patient Home Medication Reconciliation performed by pharmacy medication reconciliations performing arts technicians and/or nursing. Patients Allergies have been reviewed. Allergies Allergies Coded Allergies No Known Drug Allergies (Unverified03/27/11) Past Xoyiycd-Hhvukx-Rwqddn Hx Patient Social History Tobacco Use?: Yes Tobacco type used: Cigarettes Smoking Status: Former Smoker Smokeless Tobacco Frequency: Never a User Use of E-Cig and/or Vaping dev: No Substance use?: No Alcohol Use?: No Pt feels they are or have been: No Immunizations Up To Date Date of Influenza Vaccine: Mar 24, 2011 Date of Pneumonia Vaccine: Mar 24, 2011 Seasonal Allergies Seasonal Allergies: No Current Status status: No status: No Advance Directives: Yes Advance Directive Location: SPoke to ED physician Communicates: Verbally Primary Language: Singaporean Preferred Spoken Language: Singaporean Is interpretation needed?: No Implanted or Applied Medical D: None Past Medical History Surgeries: Adenoidectomy, Section, Gallbladder, Hysterectomy, Orthopedic, Tonsillectomy High Cholesterol, Hypertension, Peripheral Vascular (Carotid artery stenosis), Syncope TIA [facility] History: Menopausal Sexually Transmitted Disease: No HIV/AIDS: No Gastroesophageal Reflux, Gall Bladder Disease Diabetes, Non-Insulin dep Anxiety Blood Disorders: No Adverse Reaction/Blood Tranf: No Family Medical History No Pertinent Family Hx Review of Systems Constitutional: see HPI Physical Exam Physical Exam Vital Signs Vital Signs - First Documented 08/06/22 08:23 Temp 36.3 Pulse 106 Resp 18 B/P (MAP) 149/97 (114) Pulse Ox 98 O2 Delivery Room Air Capillary Refill : Height, Weight, BMI Height: 5'2.00" Weight: 171lbs. 8.0oz. 77.308217sn; 27.18 BMI Method:Stated General Appearance: No Apparent Distress HEENT: Other (Right peritonsillar erythema without significant swelling no exudate noted bilateral anterior cervical lymphadenopathy noted slightly tender to palpation no thyroid abnormality to palpation no JVD or bruits.) Respiratory: Chest Non Tender, Lungs Clear, Normal Breath Sounds, No Accessory Muscle Use, No Respiratory Distress Cardiovascular: Regular Rate, Rhythm, No Edema, No Gallop, No JVD, No Murmur, Normal Peripheral Pulses Gastrointestinal: Normal Bowel Sounds, No Organomegaly, No Pulsatile Mass, Non Tender, Soft Results Results/Procedures Labs Laboratory Tests 08/06/22 08:55 08/07/22 03:25 Patient resulted labs reviewed. Assessment/Plan Admission Diagnosis 1. Reported strep pharyngitis complicated by Right peritonsillar abscess significant improvement post I&D in the emergency room and on antibiotics we w ill continue today with likely discharge in the morning on antibiotic therapy with would likely recommend Augmentin. Admission Status: Observation RO SAUCEDA MD Aug 07, 2022 12:05
[2022-08-07 12:06] VITALS: BP 114/54
[2022-08-07 16:14] VITALS: BP 135/63
[2022-08-07 19:55] VITALS: BP 116/68
[2022-08-07 23:33] VITALS: BP 133/66
[2022-08-08 03:40] VITALS: BP 154/72
[2022-08-08] MEDS: PIPERACILLIN SODIUM/TAZOBACTAM 4.5 GM in NS (IVPB) 100 ML IV SCH ×2 (04:20→11:43)
[2022-08-08] MEDS: ACETAMINOPHEN 500 MG TAB (TYLENOL) PO PRN (04:26)
[2022-08-08 07:35] VITALS: BP 138/71
[2022-08-08] MEDS: LOSARTAN 50 MG (COZAAR) TAB PO SCH (09:06)
[2022-08-08] MEDS: ASPIRIN E.C. 81 MG (ECOTRIN) TAB PO SCH (09:06)
[2022-08-08] MEDS: CLOPIDOGREL 75 MG (PLAVIX) TABLET PO SCH (09:07)
[2022-08-08] MEDS ORDERED: LOSA50TA63 PO (10:39)
[2022-08-08] MEDS ORDERED: METF-399 PO (10:39)
[2022-08-08] MEDS ORDERED: CNC1KV IM (10:41)
[2022-08-08] MEDS ORDERED: CETI10TA17 PO (10:41)
[2022-08-08] MEDS ORDERED: IBUP-2473 PO (10:41)
[2022-08-08] MEDS ORDERED: AMOX1TAB12 PO (10:43)
--- NOTE | 2022-08-08 10:43 | Discharge Summary ---
Discharge Summary Hospital Course Hospital Course Date of Admission: Aug 06, 2022 at 13:30 Admission Diagnosis : Peritonsillar abscess Streptococcal infection Hypertension Diabetes Family Physician/Provider: Zak Springer Aprn Date of Discharge: 08/08/22 Discharge Diagnosis: Peritonsillar abscess Streptococcal infection Hypertension Diabetes Hospital Course: Pt admitted after drainage of peritonsillar abscess in ER. She had significant improvement, tolerating liquid and food and feeling much better. Culture with group F strep. Discharged with Augmentin. Labs and Pending Lab Test: Microbiology 08/06/22 Gram Stain - Final, Resulted 08/06/22 Wound Culture - Preliminary, Resulted Strep, Beta Hemolytic Group F 08/06/22 Blood Culture - Preliminary, Resulted No growth Home Meds Active Amox Tr-K Clv 875-125 mg Tab (Amoxicillin/Potassium Clav) 875 Mg-125 Mg Tablet 1 Each PO BID Reported Cetirizine HCl 10 Mg Tablet 10 Mg PO DAILY Cyanocobalamin Injection (Cyanocobalamin) 1,000 Mcg/Ml Inj 1,000 Mcg IM MONTHLY Ibuprofen 200 Mg Tablet 2 Tab PO Q6H PRN Losartan Potassium 50 Mg Tablet 50 Mg PO DAILY Metformin HCl 1,000 Mg Tablet 0 PO BID 1.5 tabs in the morning and 1 tab at night Calcium 500+Vit D 400 Tab (Calcium Carbonate/Vitamin D3) 1 Each Tablet 1 Tab PO BID Simvastatin 80 Mg Tablet 40 Mg PO DAILY Plavix 75 Mg (Clopidogrel Bisulfate) 75 Mg Tablet 75 Mg PO DAILY Aspirin Ec 81 Mg (Aspirin) 81 Mg Tabec 81 Mg PO DAILY Assessment/Pt DC Instructions Follow up within one week of discharge. Discharge Diet: ADA Diet Activity as Tolerated: Yes Discharge Physical Examination Allergies: Coded Allergies: No Known Drug Allergies (Unverified , 03/27/11) General Appearance: No Apparent Distress HEENT: Other (mild pharyngeal edema, no significant tonsillar/peritonsillar swelling) Respiratory: Lungs Clear, Normal Breath Sounds Cardiovascular: Regular Rate, Rhythm, No Murmur Skin: Normal Color, Warm/Dry Neurologic/Psychiatric: Alert, Normal Mood/Affect ANNEL HE MD Aug 08, 2022 10:43
[2022-08-08 11:00] VITALS: BP 138/71
== END 2022-08-08 11:15 | disposition home or self-care (01) ==
LOC: EDUNIT# 08:16 → ER 08:18 → 4TH 13:30 → UNDODISOB 08-08 11:15
PROVIDERS: ADMIT Internal Medicine; ATTEND Family Medicine
DX: J02.0 Streptococcal pharyngitis (principal); I10 Essential (primary) hypertension; E11.9 Type 2 diabetes mellitus without complications; Z87.891 Personal history of nicotine dependence; Z79.84 Long term (current) use of oral hypoglycemic drugs; Z79.899 Other long term (current) drug therapy
CPT/HCPCS: 36415; 70491; 80048; 80053; 83605; 85007; 85025; 85027; 85610; 85730; 87040; 87070; 87077; 87205; 96376; G0378